=== PATIENT | female | born 1940 | race Caucasian/White ===

== ENCOUNTER 2024-06-23 10:02 | Outpatient (CLI) | payer MEDICARE, SELFPAY ==
[2024-06-23 10:37] LABS: Basophils Percent Auto 0.5 % (0.2-1.2); Eosinophils Absolute Auto 0.2 K/mm3 (0-0.3); Eosinophils Percent Auto 3.2 % (0-4.4); Hematocrit 38.8 % (37.0-47.0); Hemoglobin 12.2 g/dL (12.0-15.0); Immature Granulocyte Absolute 0.02 K/mm3 (0.00-0.031); Immature Granulocyte Percent A 0.4 % (0-0.5); Lymphocytes Absolute Auto 2.09 K/mm3 (0.9-3.2); Lymphocytes Percent Auto 36.9 % (18.3-44.2); Mean Corpuscular HGB Conc 31.4 g/dl (32-36); Mean Corpuscular Hemoglobin 30.3 pg (26-34); Mean Corpuscular Volume 96.3 fl (80-100); Mean Platelet Volume 9.5 fl (7.4-10.4); Monocytes Absolute Auto 0.6 K/mm3 (0.1-0.6); Monocytes Percent Auto 9.7 % (2.6-8.5); Neutrophils Absolute Auto 2.8 K/mm3 (1.3-6.7); Neutrophils Percent Auto 49.3 % (45.5-73.1); Platelet Count Result 243 k/mm3 (150-375); Red Blood Count 4.03 M/mm3 (4.2-5.4); Red Cell Distribution Width 12.9 % (11.5-14.5); White Blood Count 5.7 K/mm3 (4.5-10.0)
[2024-06-23 10:56] LABS: Glucose 94 mg/dL (65-110)
[2024-06-23 16:20] LABS: Hemoglobin A1C 5.9 % (<5.7)
== END 2024-06-23 10:03 | disposition home or self-care (01) ==
PROVIDERS: Visit Provider Optometrist
DX: H35.041 Retinal micro-aneurysms, unspecified, right eye (principal); Z98.42 Cataract extraction status, left eye; Z98.41 Cataract extraction status, right eye
CPT/HCPCS: 36415; 82947; 83036; 85025

== ENCOUNTER 2025-03-11 09:06 | Emergency (ER) | payer MEDICARE, SELFPAY ==
[2025-03-11 09:28] VITALS: BP 128/66; PULSE 64; RESP 16; TEMP 36.4; O2SAT 98
[2025-03-11 09:36] LABS: EDUAAPPEAR Cloudy; EDUABILI Negative (Negative); EDUABLOOD 3+ (Negative); EDUACOLOR1 Yellow; EDUAGLUCOSE Negative (Negative); EDUAKETONE Negative (Negative); EDUALEUKO 2+ (Negative); EDUANITRATE Negative (Negative); EDUAPH 5.5; EDUAPROTEIN 3+ (Negative); EDUASPGRAVITY 1.025; EDUAUROBILI 0.2
--- NOTE | 2025-03-11 09:38 | ED.FEMALEGU ---
HPI - Female Genitourinary General Chief complaint: Urogenital-Female Stated complaint: uti, burning Time Seen by Provider: 03/11/25 09:13 Source: patient Mode of arrival: ambulatory Limitations: no limitations History of Present Illness HPI Narrative: Patient is a 84-year-old female who presents with burning with urination since yesterday. Patient has also had frequency and urgency. Denies any low back pain, pelvic pain, fever, chills, nausea vomiting, diarrhea. MD elicited complaint: dysuria Related Data Home Medications ?Medication ?Instructions ?Recorded ?Confirmed ?Last Taken ?Type aliskiren 150 mg tablet mg 03/11/25 Unknown History amlodipine 5 mg tablet mg 03/11/25 Unknown History apixaban 5 mg tablet (Eliquis) mg 03/11/25 Unknown History famotidine 03/11/25 Unknown History metoprolol tartrate 25 mg tablet mg 03/11/25 Unknown History Allergies Allergy/AdvReac Type Severity Reaction Status Date / Time Penicillins Allergy Unknown Unknown Verified 03/11/25 09:29 Review of Systems Review of Systems: All systems reviewed & are unremarkable except as noted in HPI and below Constitutional: Constitutional: Denies chills, Denies fever(s), Denies headache(s), Denies malaise and Denies weakness Eyes: Eyes: Denies change in vision, Denies eye discharge and Denies irritation ENT: Denies otalgia, Denies headache(s), Denies nasal congestion, Denies nasal discharge, Denies sinus pain and Denies sore throat Cardiovascular: Cardiovascular: Denies chest pain, Denies edema, Denies palpitations and Denies dyspnea Respiratory: Respiratory: Denies cough and Denies dyspnea Gastrointestinal: Gastrointestinal: Denies abdominal pain, Denies diarrhea, Denies nausea and Denies vomiting Genitourinary: Genitourinary: Denies hematuria, Reports nocturia, Reports dysuria, Denies flank pain and Reports urinary urgency Musculoskeletal: Musculoskeletal: Denies back pain and Denies numbness Integumentary/Breasts: Skin/Breast: Denies pruritus and Denies rash Neurologic: Denies headache(s), Denies numbness and Denies weakness Psychiatric: Psychiatric: Reports no additional psychiatric complaints Endocrine: Endocrine: Denies palpitations PMFSH Comments At time of signature, agree with nursing past medical, surgical, social and family history. There is no relevant family history pertinent to the presenting complaint. Exam Const: General: cooperative, healthy appearing, comfortable, no acute distress and well nourished Nutritional Appearance: well nourished Orientation/consciousness: patient oriented x3 HENMT: Head: normocephalic and atraumatic Ears: external ears normal Face/Nose/Sinus: Normal external nose present, Normal nares present and normal facial exam Face and sinus: normal facial exam Eyes: General: appearance normal, both eyes and all related structures Pupils: Equal, round and reactive pupils present EOM: EOMs intact bilaterally Neck: Neck: normal visual inspection, full ROM and supple Chest: Chest palpation & inspection: normal inspection of the chest Resp: Effort & Inspection: normal respiratory effort and able to speak in complete sentences Cardio: Rate: regular rate Rhythm: regular rhythm GI: Inspection: normal to inspection GI Palp: No abdominal tenderness and Yes Soft to palpation : General: Yes no CVA tenderness Back/Spine/Pelvis: Back: no CVA tenderness Skin: General skin exam: normal color and no rashes or lesions noted Neuro: General: patient oriented x3 and moves all extremities Cranial nerves: Yes Equal, round and reactive pupils present Extrem: General: normal to inspection and full ROM Psych: Appearance: grossly normal and well kempt Course Course Emergency Course: Patient is aware of diagnosis, understands and agrees to treatment plan. Anticipatory guidance given. Patient agrees to follow-up as directed and is aware of reasons to seek care at the emergency department. Portions of this record may have been created with voice recognition software Level of Care: Express Care Visit Vital Signs Vital signs: Vital Signs Temperature 36.4 C L 03/11/25 09:28 Pulse Rate 64 03/11/25 09:28 Respiratory Rate 16 03/11/25 09:28 Blood Pressure 128/66 03/11/25 09:28 Pulse Oximetry 98 03/11/25 09:28 Temperature 36.4 C L 03/11/25 09:28 Pulse Rate 64 03/11/25 09:28 Respiratory Rate 16 03/11/25 09:28 Blood Pressure 128/66 03/11/25 09:28 Pulse Oximetry 98 03/11/25 09:28 Reviewed MDM - Female Genitourinary MDM Narrative Medical decision making narrative: Exam findings and UA show probable UTI; patient is non-toxic appearing and is in no distress. No CMT, adnexal tenderness, or evidence of pelvic etiology. Patient is appropriate for outpatient treatment and follow-up. Differential Diagnosis Differential diagnosis: Likely urinary tract infection, bacterial vaginosis, trichomoniasis, cervicitis, vaginitis and cystitis Lab Data Attestation: I reviewed the patient's lab results. Labs: Lab Results 03/11/25 Range/Units 09:35 POC Urine Color Yellow POC Urine Clarity Cloudy POC Urine pH 5.5 POC Ur Specif [place] 1.025 POC Urine Protein 3+ (Negative) POC Ur Glucose (UA) Negative (Negative) POC Urine Ketones Negative (Negative) POC Urine Blood 3+ (Negative) POC Urine Nitrite Negative (Negative) POC Urine Bilirubin Negative (Negative) POC Urine Urobilinogen 0.2 POC U Leukocyte Esteras 2+ (Negative) Discharge Plan Discharge Clinical Impression: Urinary tract infection Qualifiers: Urinary tract infection type: acute cystitis Hematuria presence: with hematuria Qualified Code(s): N30.01 - Acute cystitis with hematuria Patient Disposition: Home Condition: Stable Instructions: Urinary Tract Infection in Older Adults (ED) Additional Instructions: We will send a urine culture to the lab, based on your symptoms and urine dip we will start treatment today. If culture comes back and bacteria is not susceptible to antibiotic, your prescription may change. Your symptoms should improve within a day of starting antibiotics, but you should finish all the antibiotic pills you get. Otherwise your infection might come back Continue with increased water intake. Take Tylenol or ibuprofen as needed for pain or fever. Follow-up with primary care provider for urine recheck or see ER visit if condition worsens with high fever, nausea, vomiting, severe back pain Patient Language: [place] Prescriptions: New nitrofurantoin monohyd/m-cryst 100 mg capsule 100 mg PO Q12H 5 Days Qty: 10 0RF Rx Instructions: must administer with a meal/food No Action amlodipine 5 mg tablet metoprolol tartrate 25 mg tablet aliskiren 150 mg tablet Eliquis 5 mg tablet famotidine Follow-up/Referrals: UNKNOWN,DOCTOR [Primary Care Provider] - Time of Disposition: 09:39
== END 2025-03-11 09:45 | disposition home or self-care (01) ==
PROVIDERS: Emergency Provider Nurse Practitioner Family
DX: N30.01 Acute cystitis with hematuria (principal); Z79.01 Long term (current) use of anticoagulants
CPT/HCPCS: 81003; 87086; 99203; G0463

== ENCOUNTER 2025-03-20 08:15 | Outpatient (CLI) | payer MEDICARE, SELFPAY ==
--- OUTSIDE RECORDS SUMMARY | 2025-03-20 08:32 | XMS_ITS ---
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 unit/0.1 mL intradermal injection solution 1 Application VIAL (ML) Other 1 Time Daily for 1 Day Indication: rule out tb Read results between 48-72 hours after 1st and 2nd (1 week apart). Any reading of 10mm or greater results in a positive test, an x-ray will need to be ordered as a follow up. WedJan 09 15:00:00 EDT 2024Jan 09 15:50:00 EDT 2024 docusate sodium 100 mg capsule 100 mg CAPSULE Oral PRN 2 Times Daily Indication: constipation WedJan 12 16:38:00 EDT 2024Jan 29 01:00:00 EDT 2024 amLODIPine 2.5 mg tablet 3 tabs TABLET O ral 1 Time Daily Indication: HTN WedJan 09 15:00:00 EDT 2024Jan 09 17:33:00 EDT 2024 Eliquis 5 mg tablet 5 mg TABLET Oral 2 T imes Daily Indication: blood thinner WedJan 09 15:00:00 EDT 2024Jan 29 01:00:00 EDT 2024 docusate sodium 100 mg capsule 100 mg CAPSULE Oral 2 Times Daily Indication: constipation WedJan 09 15:00:00 EDT 2024Jan 12 16:39:00 EDT 2024 acetaminophen 500 mg tablet 500 mg TABLE T Oral PRN Every 4 Hours Indication: pain WedJan 09 15:00:00 EDT 2024Jan 29 01:00:00 EDT 2024 aliskiren 150 mg tablet 150 mg TABLET Or al 1 Time Daily Indication: HTN WedJan 09 15:00:00 EDT 2024Jan 09 17:25:00 EDT 2024 ALPRAZolam 0.5 mg tablet 0.5 mg TABLET O ral PRN 1 Time Daily Indication: anxiety WedJan 09 15:00:00 EDT 2024Jan 09 17:29:00 EDT 2024 cholecalciferol (vitamin D3) 50 mcg (2,000 unit) tablet 2,000 units TABLET Oral 1 Time Daily Indication: supplement WedJan 09 15:00:00 EDT 2024Jan 29 01:00:00 EDT 2024 famotidine 20 mg tablet 20 mg TABLET Ora l PRN 1 Time Daily Indication: acid reflux WedJan 09 15:00:00 EDT 2024Jan 29 01:00:00 EDT 2024 metoprolol tartrate 50 mg tablet 50 mg TABLET Oral 2 Times Daily Indication: HTN WedJan 09 15:00:00 EDT 2024Jan 29 01:00:00 EDT 2024 sertraline 25 mg tablet 25 mg TABLET Ora l 1 Time Daily Indication: depression WedJan 09 15:00:00 EDT 2024Jan 29 01:00:00 EDT 2024 TubersoL 5 tub. unit/0.1 mL intradermal injection solution 0.1 Milliliter VIAL (ML) Intradermal 1 Time Daily for 1 Day Indication: rule out tb 1 Step PPD- Read between 48 and 72 hours WedJan 10 07:00:00 EDT 2024Jan 11 06:59:00 EDT 2024 TubersoL 5 tub. unit/0.1 mL intradermal injection solution 1 Application VIAL (ML) Other 1 Time Daily for 1 Day Indication: rule out tb Read results between 48-72 hours after 1st and 2nd (1 week apart). Any reading of 10mm or greater results in a positive test, an x-ray will need to be ordered as a follow up. WedJan 12 07:00:00 EDT 2024 14 06:59:00 EDT 2024 aliskiren 150 mg tablet 75mg TABLET Oral 1 Time Daily Indication: HTN WedJan 09 17:24:00 EDT 2024Jan 29 01:00:00 EDT 2024 ALPRAZolam 0.5 mg tablet 0.5 mg TABLET O ral PRN 1 Time Daily Indication: anxiety WedJan 09 17:28:00 EDT 2024Jan 09 17:29:00 EDT 2024 ALPRAZolam 0.25 mg tablet 1/2 tablet TAB LET Oral PRN 1 Time Daily Indication: Anxiety WedJan 09 17:00:00 EDT 2024Jan 15 17:59:00 EDT 2024 amLODIPine 2.5 mg tablet 3 tablets TABLE T Oral 1 Time Daily Indication: HTN WedJan 09 17:32:00 EDT 2024Jan 29 01:00:00 EDT 2024 Problems Active Concerns * Acute embolism and thrombosis of left peroneal vein* Code: * Start Date: WedJan 09 00:00:00 EDT 2024 * End Date: * Text: * Multiple subsegmental thrombotic 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 * Code: * Start Date: WedJan 09 00:00:00 EDT 2024 * End Date: * Text: * Presence of other vascular implants and grafts* Code: * Start Date: WedJan 09 00:00:00 EDT 2024 * End Date: * Text: * Anxiety disorder, unspecified* Code: * Start Date: WedJan 09 00:00:00 EDT 2024 * End Date: WedJan 12 00:00:00 EDT 2024 * Text: * Depression, unspecified* Code: * Start Date: WedJan 09 00:00:00 EDT 2024 * End Date: WedJan 11 00:00:00 EDT 2024 * Text: * Essential (primary) hypertension* Code: * Start Date: WedJan 09 00:00:00 EDT 2024 * End Date: * Text: * Encounter for surgical aftercare following surgery on the circulatory system* Code: * Start Date: WedJan 09 00:00:00 EDT 2024 * End Date: * Text: * Gastro-esophageal reflux disease without esophagitis* Code: * Start Date: WedJan 09 00:00:00 EDT 2024 * End Date: * Text: * Malignant neoplasm of transverse colon* Code: * Start Date: WedJan 09 00:00:00 EDT 2024 * End Date: * Text: * Iron deficiency anemia, unspecified* Code: * Start Date: WedJan 09 00:00:00 EDT 2024 * End Date: * Text: * Gastrointestinal hemorrhage, unspecified* Code: * Start Date: WedJan 09 00:00:00 EDT 2024 * End Date: * Text: * Other disturbances of skin sensation* Code: * Start Date: WedJan 09 00:00:00 EDT 2024 * End Date: * Text: * Acute posthemorrhagic anemia* Code: * Start Date: WedJan 09 00:00:00 EDT 2024 * End Date: * Text: * Other specified postprocedural states* Code: * Start Date: WedJan 09 00:00:00 EDT 2024 * End Date: * Text: * Constipation, unspecified* Code: * Start Date: WedJan 09 00:00:00 EDT 2024 * End Date: * Text: * custodial (current) use of anticoagulants* Code: * Start Date: WedJan 09 00:00:00 EDT 2024 * End Date: * Text: * Major depressive disorder, recurrent, unspecified* Code: * Start Date: WedJan 09 00:00:00 EDT 2024 * End Date: * Text: * Generalized anxiety disorder* Code: * Start Date: WedJan 09 00:00:00 EDT 2024 * End Date: * Text: * Vitamin D deficiency, unspecified* Code: * Start Date: WedJan 09 00:00:00 EDT 2024 * End Date: * Text: * Weakness* Code: * Start Date: WedJan 31 00:00:00 EDT 2024 * End Date: * Text: * [id number] Susan receives a therapeutic diet. (12)* Code: * Start Date: WedJan 17 00:00:00 EDT 2024 * End Date: * Text: [id number] Susan receives a therapeutic diet. (12) * ANDREASVickieSocial Ed Davis's wishes will be followed (Advanced Directive/Code Status).* Code: * Start Date: WedJan 17::00 EDT 2024 * End Date: * Text: ANDREASVickieSocial Ed Davis's wishes will be followed (Advanced Directive/Code Status). * ANDREASVickieSocial ServicesChristiano Davis will be involved in goal development to the best of his or her ability.* Code: * Start Date: WedJan 17 00:00:00 EDT 2024 * End Date: * Text: ANDREAS_Social ServicesChristiano Davis will be involved in goal development to the best of his or her ability. * ANDREASVickieSocial Ed Davis has family/friends who are supportive.* Code: * Start Date: WedJan 17:00:00 EDT 2024 * End Date: * Text: ANDREASVickieSocial Ed Davis has family/friends who are supportive. * JONATHONSocial Ed Davis's mobility level is different than prior level due to current medical condition.* Code: * Start Date: WedJan 17 00:00:00 EDT 2024 * End Date: * Text: LSS_Social Services- Susan's mobility level is different than prior level due to current medical condition. * LSS_Social Services- Susan will be involved in discharge planning.* Code: * Start Date: WedJan 17 00:00:00 EDT 2024 * End Date: * Text: LSS_Social Services- Susan will be involved in discharge planning. * B0200.2 Hearing: Susan is able to hear with Moderate Difficulty (4)* Code: * Start Date: WedJan 22:00:00 EDT 2024 * End Date: * Text: B0200.2 Hearing: Susan is able to hear with Moderate Difficulty (4) * B1000.1 Vision: Susan ability to see in adequate light is Impaired (3)* Code: * Start Date: WedJan 22:00:00 EDT 2024 * End Date: * Text: B1000.1 Vision: Susan ability to see in adequate light is Impaired (3) * LSS_Psychotropic Drug Use - Use of psychotropic drug use places Susan at risk for drug-related sideeffects.* Code: * Start Date: WedJan 22:00:00 EDT 2024 * End Date: * Text: LSS_Psychotropic Drug Use - Use of psychotropic drug use places Susan at risk for drug-related side effects. * LSS_Falls - Susan is at risk for falls/injury as evidenced by: history of falls, cognitive status/behavior, vision status, continence, mobility, balance.* Code: * Start Date: WedJan 22 00:00:00 EDT 2024 * End Date: * Text: LSS_Falls - Susan is at risk for falls/injury as evidenced by: history of falls, cognitive status/behavior, vision status, continence, mobility, balance. * LSS_Pain - Susan is experiencing pain or is at high risk for pain.* Code: * Start Date: WedJan 22::00 EDT 2024 * End Date: * Text: LSS_Pain - Susan is experiencing pain or is at high risk for pain. * LSS_Skin Integrity - (Potential Alteration of)- Susan is at risk for developing impaired skin integrity.* Code: * Start Date: WedJan 22:00:00 EDT 2024 * End Date: * Text: LSS_Skin Integrity - (Potential Alteration of)- Susan is at risk for developing impaired skinintegrity. * LSS_ADLs - Susan has ADL selfcare deficit related to decreased mobility and muscle weakness* Code: * Start Date: WedJan 22 00:00:00 EDT 2024 * End Date: * Text: LSS_ADLs - Susan has ADL selfcare deficit related to decreased mobility and muscle weakness * LSS_Urinary Incontinence1 - Susan is occasionally incontinent.* Code: * Start Date: WedJan 22 00:00:00 EDT 2024 * End Date: * Text: LSS_Urinary Incontinence1 - Susan is occasionally incontinent. * [id number] Suasn is taking antidepressant drug(s)* Code: * Start Date: WedJan 22 00:00:00 EDT 2024 * End Date: * Text: [id number] Susan is taking antidepressant drug(s) Vital Signs Vital Sign Measurement Date Body weight 125.90 [lb_av] WedJan 29 09:40 :00 EDT 2024 Systolic Blood Pressure 128.00 mm[Hg] WedJan 29:31:26 EDT 2024 Diastolic Blood Pressure 72.00 mm[Hg] WedJan 29:31:26 EDT 2024 Pulse Oximetry 94.00 % WedJan 29:31 :26 EDT 2024 Heart Rate 86.00 /min WedJan 29:31 :26 EDT 2024 Body temperature 98.10 [degF] WedJan 29 09:3 1:26 EDT 2024 Respiratory rate 18.00 /min WedJan 29 09:3 1:26 EDT 2024 Systolic Blood Pressure 128.00 mm[Hg] WedJan 29 09:10:45 EDT 2024 Diastolic Blood Pressure 72.00 mm[Hg] WedJan 29 09:10:45 EDT 2024 Systolic Blood Pressure 128.00 mm[Hg] WedJan 29:10:45 EDT 2024 Diastolic Blood Pressure 72.00 mm[Hg] WedJan 29 09:10:45 EDT 2024 Heart Rate 86.00 /min WedJan 29 09:10 :45 EDT 2024 Systolic Blood Pressure 127.00 mm[Hg] [place] Jan 28 20:17:03 EDT 2024 Diastolic Blood Pressure 73.00 mm[Hg] [place] Jan 28 20:17:03 EDT 5 Systolic Blood Pressure 127.00 mm[Hg] Sun [place] 29 20:17:03 EDT 5 Diastolic Blood Pressure 73.00 mm[Hg] Sun [place] 29 20:17:03 EDT 5 Systolic Blood Pressure 127.00 mm[Hg] Sun [place] 29 20:17:03 EDT 2024 Diastolic Blood Pressure 73.00 mm[Hg] Sun [place] 29 20:17:03 EDT 2024 Pulse Oximetry 97.00 % Sun Jose 29 20:17 :03 EDT 2024 Heart Rate 97.00 /min Sun Jan 28 20:17 :03 EDT 2024 Heart Rate 97.00 /min Sun Jose 29 20:17 :03 EDT 2024 Body temperature 97.80 [degF] Sun Jan 28 20:1 7:03 EDT 2024 Respiratory rate 18.00 /min Sun Jan 28 20:1 7:03 EDT 2024 Systolic Blood Pressure 168.00 mm[Hg] Sun Jan 28 09:06:49 EDT 2024 Diastolic Blood Pressure 71.00 mm[Hg] Sun Jan 28 09:06:49 EDT 2024 Systolic Blood Pressure 168.00 mm[Hg] Sun Jan 28 09:06:49 EDT 2024 Diastolic Blood Pressure 71.00 mm[Hg] Sun Jan 28 09:06:49 EDT 2024 Heart Rate 70.00 /min Sun Jan 28 09:06 :49 EDT 2024 Systolic Blood Pressure 168.00 mm[Hg] Sun Jan 28 09:03:37 EDT 2024 Diastolic Blood Pressure 71.00 mm[Hg] [place] 09:03:37 EDT 2024 Pulse Oximetry 96.00 % Sun Jan 28 09:03 :37 EDT 2024 Body weight 125.00 [lb_av] Sun Jan 28 09:03 :37 EDT 2024 Heart Rate 70.00 /min Sun Jose 09:03 :37 EDT 2024 Body temperature 98.20 [degF] Sun Jose 09:0 3:37 EDT 2024 Respiratory rate 18.00 /min Sun Jose 29 09:0 3:37 EDT 2024 Systolic Blood Pressure 137.00 mm[Hg] Sat Jose 28 20:33:21 EDT 2024 Diastolic Blood Pressure 84.00 mm[Hg] Sat Jose 28 20:33:21 EDT 2024 Systolic Blood Pressure 137.00 mm[Hg] Sat Jose 28 20:33:21 EDT 2024 Diastolic Blood Pressure 84.00 mm[Hg] Sat Jose 28 20:33:21 EDT 2024 Systolic Blood Pressure 137.00 mm[Hg] Sat Jose 28 20:33:21 EDT 2024 Diastolic Blood Pressure 84.00 mm[Hg] Sat Jose 28 20:33:21 EDT 2024 Pulse Oximetry 97.00 % Sat Jose 28 20:33 :21 EDT 2024 Heart Rate 90.00 /min Sat Jose 28 20:33 :21 EDT 2024 Heart Rate 90.00 /min Sat Jose 28 20:33 :21 EDT 2024 Body temperature 98.20 [degF] [facility] Jose 28 20:3 3:21 EDT 2024 Respiratory rate 20.00 /min [facility] Jose 28 20:3 3:21 EDT 2024 Body weight 124.80 [lb_av] [facility] Jose 28 09:24 :39 EDT 2024 Systolic Blood Pressure 134.00 mm[Hg] [facility] Jose 28 09:24:22 EDT 2024 Diastolic Blood Pressure 71.00 mm[Hg] [facility] Jose 28 09:24:22 EDT 2024 Systolic Blood Pressure 134.00 mm[Hg] [facility] Jose 28 09:24:22 EDT 2024 Diastolic Blood Pressure 71.00 mm[Hg] [facility] Jose 28 09:24:22 EDT 2024 Systolic Blood Pressure 134.00 mm[Hg] Sat Jose 28 09:24:22 EDT 2024 Diastolic Blood Pressure 71.00 mm[Hg] [facility] Jose 28 09:24:22 EDT 2024 Pulse Oximetry 99.00 % [facility] Jose 28 09:24 :22 EDT 2024 Heart Rate 74.00 /min Sat Jose 28 09:24 :22 EDT 5 Heart Rate 74.00 /min Sat Jose 28 09:24 :22 EDT 2024 Body temperature 98.00 [degF] Sat Jose 28 09:2 4:22 EDT 2024 Respiratory rate 18.00 /min Sat Jose 28 09:2 4:22 EDT 2024 Systolic Blood Pressure 145.00 mm[Hg] WedJan 26 20:15:05 EDT 2024 Diastolic Blood Pressure 67.00 mm[Hg] WedJan 26 20:15:05 EDT 2024 Systolic Blood Pressure 145.00 mm[Hg] WedJan 26 20:15:05 EDT 2024 Diastolic Blood Pressure 67.00 mm[Hg] WedJan 26 20:15:05 EDT 2024 Systolic Blood Pressure 145.00 mm[Hg] WedJan 26 20:15:05 EDT 2024 Diastolic Blood Pressure 67.00 mm[Hg] WedJan 26 20:15:05 EDT 2024 Pulse Oximetry 97.00 % WedJan 26 20:15 :05 EDT 2024 Heart Rate 76.00 /min WedJan 26 20:15 :05 EDT 2024 Heart Rate 76.00 /min WedJan 26 20:15 :05 EDT 2024 Body temperature 98.20 [degF] WedJan 26 20:1 5:05 EDT 2024 Respiratory rate 18.00 /min WedJan 26 20:1 5:05 EDT 2024 Body weight 126.20 [lb_av] WedJan 26 14:09 :20 EDT 2024 Systolic Blood Pressure 131.00 mm[Hg] WedJan 26 09:33:43 EDT 2024 Diastolic Blood Pressure 76.00 mm[Hg] WedJan 26 09:33:43 EDT 2024 Systolic Blood Pressure 131.00 mm[Hg] WedJan 26 09:33:43 EDT 2024 Diastolic Blood Pressure 76.00 mm[Hg] WedJan 26 09:33:43 EDT 2024 Heart Rate 78.00 /min WedJan 26 09:33 :43 EDT 2024 Systolic Blood Pressure 131.00 mm[Hg] WedJan 26 08:54:48 EDT 2024 Diastolic Blood Pressure 76.00 mm[Hg] WedJan 26 08:54:48 EDT 2024 Pulse Oximetry 95.00 % WedJan 26 08:54 :48 EDT 2024 Heart Rate 78.00 /min WedJan 26 08:54 :48 EDT 2024 Body temperature 98.30 [degF] WedJan 26 08:5 4:48 EDT 2024 Respiratory rate 16.00 /min WedJan 26 08:5 4:48 EDT 2024 Systolic Blood Pressure 122.00 mm[Hg] WedJan 25 22:52:50 EDT 2024 Diastolic Blood Pressure 66.00 mm[Hg] WedJan 25 22:52:50 EDT 2024 Systolic Blood Pressure 122.00 mm[Hg] WedJan 25 22:52:50 EDT 2024 Diastolic Blood Pressure 66.00 mm[Hg] WedJan 25 22:52:50 EDT 2024 Systolic Blood Pressure 122.00 mm[Hg] WedJan 25 22:52:50 EDT 2024 Diastolic Blood Pressure 66.00 mm[Hg] [place] Jan 25 22:52:50 EDT 2024 Pulse Oximetry 95.00 % WedJan 25 22:52 :50 EDT 2024 Heart Rate 88.00 /min WedJan 25 22:52 :50 EDT 2024 Heart Rate 88.00 /min [place] Jan 25 22:52 :50 EDT 2024 Body temperature 97.90 [degF] [place] Jan 25 22:5 2:50 EDT 2024 Respiratory rate 20.00 /min [place] Jan 25 22:5 2:50 EDT 2024 Body weight 125.00 [lb_av] [place] Jan 25 09:20 :08 EDT 2024 Systolic Blood Pressure 129.00 mm[Hg] [place] Jan 25 09:00:29 EDT 2024 Diastolic Blood Pressure 72.00 mm[Hg] [place] Jan 25 09:00:29 EDT 2024 Systolic Blood Pressure 129.00 mm[Hg] [place] Jan 25 08:45:25 EDT 2024 Diastolic Blood Pressure 72.00 mm[Hg] [place] Jan 25 08:45:25 EDT 2024 Heart Rate 87.00 /min [place] Jan 25 08:45 :25 EDT 2024 Systolic Blood Pressure 129.00 mm[Hg] [place] Jan 25 08:44:31 EDT 2024 Diastolic Blood Pressure 72.00 mm[Hg] [place] Jan 25 08:44:31 EDT 2024 Pulse Oximetry 96.00 % [place] Jan 25 08:44 :31 EDT 2024 Heart Rate 87.00 /min [place] Jan 25 08:44 :31 EDT 2024 Body temperature 98.20 [degF] [place] Jan 25 08:4 4:31 EDT 2024 Respiratory rate 18.00 /min [place] Jan 25 08:4 4:31 EDT 2024 Systolic Blood Pressure 134.00 mm[Hg] WedJan 24 20:14:32 EDT 2024 Diastolic Blood Pressure 60.00 mm[Hg] WedJan 24 20:14:32 EDT 2024 Systolic Blood Pressure 134.00 mm[Hg] WedJan 24 20:14:32 EDT 2024 Diastolic Blood Pressure 60.00 mm[Hg] WedJan 24 20:14:32 EDT 2024 Systolic Blood Pressure 134.00 mm[Hg] WedJan 24 20:14:32 EDT 2024 Diastolic Blood Pressure 60.00 mm[Hg] WedJan 24 20:14:32 EDT 2024 Pulse Oximetry 98.00 % WedJan 24 20:14 :32 EDT 2024 Heart Rate 84.00 /min WedJan 24 20:14 :32 EDT 2024 Heart Rate 84.00 /min WedJan 24 20:14 :32 EDT 2024 Body temperature 98.10 [degF] WedJan 24 20:1 4:32 EDT 2024 Respiratory rate 20.00 /min WedJan 24 20:1 4:32 EDT 2024 Body weight 126.80 [lb_av] WedJan 24 18:54 :10 EDT 2024 Body weight 126.80 [lb_av] WedJan 24 18:53 :43 EDT 2024 Systolic Blood Pressure 149.00 mm[Hg] WedJan 24 09:05:03 EDT 2024 Diastolic Blood Pressure 75.00 mm[Hg] WedJan 24 09:05:03 EDT 2024 Systolic Blood Pressure 149.00 mm[Hg] WedJan 24 08:54:20 EDT 2024 Diastolic Blood Pressure 75.00 mm[Hg] WedJan 24 08:54:20 EDT 2024 Heart Rate 74.00 /min WedJan 24 08:54 :20 EDT 2024 Systolic Blood Pressure 149.00 mm[Hg] WedJan 24 08:47:24 EDT 2024 Diastolic Blood Pressure 75.00 mm[Hg] WedJan 24 08:47:24 EDT 2024 Pulse Oximetry 95.00 % WedJan 24 08:47 :24 EDT 2024 Heart Rate 74.00 /min WedJan 24 08:47 :24 EDT 2024 Body temperature 98.20 [degF] WedJan 24 08:4 7:24 EDT 2024 Respiratory rate 18.00 /min WedJan 24 08:4 7:24 EDT 2024 Systolic Blood Pressure 126.00 mm[Hg] WedJan 23 20:09:45 EDT 2024 Diastolic Blood Pressure 59.00 mm[Hg] WedJan 23 20:09:45 EDT 2024 Systolic Blood Pressure 126.00 mm[Hg] WedJan 23 20:09:45 EDT 2024 Diastolic Blood Pressure 59.00 mm[Hg] WedJan 23 20:09:45 EDT 2024 Systolic Blood Pressure 126.00 mm[Hg] WedJan 23 20:09:45 EDT 2024 Diastolic Blood Pressure 59.00 mm[Hg] WedJan 23 20:09:45 EDT 2024 Pulse Oximetry 96.00 % WedJan 23 20:09 :45 EDT 2024 Heart Rate 78.00 /min WedJan 23 20:09 :45 EDT 2024 Heart Rate 78.00 /min WedJan 23 20:09 :45 EDT 2024 Body temperature 97.80 [degF] WedJan 23 20:0 9:45 EDT 2024 Respiratory rate 18.00 /min WedJan 23 20:0 9:45 EDT 2024 Systolic Blood Pressure 125.00 mm[Hg] WedJan 23 09:04:15 EDT 2024 Diastolic Blood Pressure 81.00 mm[Hg] WedJan 23 09:04:15 EDT 2024 Systolic Blood Pressure 125.00 mm[Hg] WedJan 23 08:45:22 EDT 2024 Diastolic Blood Pressure 81.00 mm[Hg] WedJan 23 08:45:22 EDT 2024 Heart Rate 73.00 /min WedJan 23 08:45 :22 EDT 2024 Systolic Blood Pressure 125.00 mm[Hg] WedJan 23 08:33:11 EDT 2024 Diastolic Blood Pressure 81.00 mm[Hg] WedJan 23 08:33:11 EDT 2024 Pulse Oximetry 96.00 % WedJan 23 08:33 :11 EDT 2024 Heart Rate 73.00 /min WedJan 23 08:33 :11 EDT 2024 Body temperature 98.30 [degF] WedJan 23 08:3 3:11 EDT 2024 Respiratory rate 18.00 /min WedJan 23 08:3 3:11 EDT 2024 Systolic Blood Pressure 129.00 mm[Hg] WedJan 23 01:13:03 EDT 2024 Diastolic Blood Pressure 65.00 mm[Hg] WedJan 23 01:13:03 EDT 2024 Pulse Oximetry 96.00 % WedJan 23 01:13 :03 EDT 2024 Heart Rate 89.00 /min WedJan 23 01:13 :03 EDT 2024 Body temperature 98.00 [degF] Jan 23 01:1 3:03 EDT 2024 Respiratory rate 18.00 /min Jan 23 01:1 3:03 EDT 2024 Systolic Blood Pressure 129.00 mm[Hg] [facility] Jan 22 20:57:00 EDT 2024 Diastolic Blood Pressure 65.00 mm[Hg] [facility] Jan 22 20:57:00 EDT 2024 Systolic Blood Pressure 129.00 mm[Hg] [facility] Jan 22 20:57:00 EDT 2024 Diastolic Blood Pressure 65.00 mm[Hg] [facility] Jan 22 20:57:00 EDT 2024 Heart Rate 84.00 /min [facility] Jan 22 20:57 :00 EDT 2024 Systolic Blood Pressure 132.00 mm[Hg] [facility] Jan 22 09:08:27 EDT 2024 Diastolic Blood Pressure 78.00 mm[Hg] [facility] Jan 22 09:08:27 EDT 2024 Systolic Blood Pressure 132.00 mm[Hg] [facility] Jan 22 08:37:23 EDT 2024 Diastolic Blood Pressure 78.00 mm[Hg] [facility] Jan 22 08:37:23 EDT 2024 Pulse Oximetry 95.00 % [facility] Jan 22 08:37 :23 EDT 2024 Heart Rate 82.00 /min [facility] Jan 22 08:37 :23 EDT 2024 Body temperature 97.70 [degF] [facility] Jan 22 08:3 7:23 EDT 2024 Respiratory rate 16.00 /min WedJan 22 08:3 7:23 EDT 2024 Systolic Blood Pressure 132.00 mm[Hg] [facility] Jan 22 08:36:16 EDT 2024 Diastolic Blood Pressure 78.00 mm[Hg] [facility] Jan 22 08:36:16 EDT 2024 Heart Rate 82.00 /min [facility] Jan 22 08:36 :16 EDT 2024 Systolic Blood Pressure 136.00 mm[Hg] [place] Jan 21 21:31:48 EDT 2024 Diastolic Blood Pressure 72.00 mm[Hg] [place] Jan 21 21:31:48 EDT 2024 Pulse Oximetry 98.00 % [place] Jan 21 21:31 :48 EDT 2024 Heart Rate 89.00 /min [place] Jan 21 21:31 :48 EDT 2024 Body temperature 97.60 [degF] [place] Jan 21 21:3 1:48 EDT 2024 Respiratory rate 18.00 /min [place] Jan 21 21:3 1:48 EDT 2024 Systolic Blood Pressure 136.00 mm[Hg] Sun Jose 22 20:59:56 EDT 2024 Diastolic Blood Pressure 72.00 mm[Hg] Sun [place] 22 20:59:56 EDT 2024 Systolic Blood Pressure 136.00 mm[Hg] [place] 22 20:59:56 EDT 2024 Diastolic Blood Pressure 72.00 mm[Hg] [place] 22 20:59:56 EDT 2024 Heart Rate 89.00 /min Sun Jose 22 20:59 :56 EDT 2024 Systolic Blood Pressure 130.00 mm[Hg] Sun [place] 22 09:01:43 EDT 2024 Diastolic Blood Pressure 83.00 mm[Hg] [place] 22 09:01:43 EDT 2024 Systolic Blood Pressure 130.00 mm[Hg] [place] 22 08:43:49 EDT 2024 Diastolic Blood Pressure 83.00 mm[Hg] [place] 22 08:43:49 EDT 2024 Pulse Oximetry 97.00 % [place] 22 08:43 :49 EDT 2024 Heart Rate 80.00 /min Sun [place] 22 08:43 :49 EDT 2024 Body temperature 97.90 [degF] [place] 22 08:4 3:49 EDT 2024 Respiratory rate 20.00 /min Sun Jose 22 08:4 3:49 EDT 2024 Systolic Blood Pressure 130.00 mm[Hg] [place] 22 08:43:04 EDT 2024 Diastolic Blood Pressure 83.00 mm[Hg] [place] 22 08:43:04 EDT 2024 Heart Rate 80.00 /min Sun [place] 22 08:43 :04 EDT 2024 Systolic Blood Pressure 157.00 mm[Hg] [place] 22 00:01:10 EDT 2024 Diastolic Blood Pressure 97.00 mm[Hg] [place] 22 00:01:10 EDT 2024 Pulse Oximetry 97.00 % [place] 22 00:01 :10 EDT 2024 Heart Rate 97.00 /min Sun [place] 22 00:01 :10 EDT 2024 Body temperature 98.00 [degF] [place] 22 00:0 1:10 EDT 2024 Respiratory rate 20.00 /min Sun [place] 22 00:0 1:10 EDT 2024 Systolic Blood Pressure 157.00 mm[Hg] Sat Jose 21 21:04:53 EDT 2024 Diastolic Blood Pressure 97.00 mm[Hg] Sat Jose 21 21:04:53 EDT 5 Systolic Blood Pressure 157.00 mm[Hg] Sat Jose 21 21:04:53 EDT 5 Diastolic Blood Pressure 97.00 mm[Hg] Sat Jose 21 21:04:53 EDT 2024 Heart Rate 97.00 /min [facility] Jose 21 21:04 :53 EDT 2024 Body weight 125.80 [lb_av] [facility] Jose 21 13:39 :15 EDT 2024 Systolic Blood Pressure 146.00 mm[Hg] [facility] Jose 21 09:06:51 EDT 2024 Diastolic Blood Pressure 72.00 mm[Hg] [facility] Jose 21 09:06:51 EDT 5 Systolic Blood Pressure 146.00 mm[Hg] [facility] Jose 21 08:46:26 EDT 2024 Diastolic Blood Pressure 72.00 mm[Hg] [facility] Jose 21 08:46:26 EDT 2024 Pulse Oximetry 95.00 % [facility] Jose 21 08:46 :26 EDT 2024 Heart Rate 69.00 /min [facility] Jose 21 08:46 :26 EDT 2024 Body temperature 98.00 [degF] [facility] Jose 21 08:4 6:26 EDT 5 Respiratory rate 18.00 /min [facility] 21 08:4 6:26 EDT 2024 Systolic Blood Pressure 146.00 mm[Hg] [facility] Jose 21 08:45:58 EDT 2024 Diastolic Blood Pressure 72.00 mm[Hg] [facility] Jose 21 08:45:58 EDT 2024 Heart Rate 69.00 /min [facility] Jose 21 08:45 :58 EDT 2024 Systolic Blood Pressure 146.00 mm[Hg] Wed 20 21:07:55 EDT 2024 Diastolic Blood Pressure 73.00 mm[Hg] Wed 20 21:07:55 EDT 5 Systolic Blood Pressure 146.00 mm[Hg] Wed 20 21:07:55 EDT 5 Diastolic Blood Pressure 73.00 mm[Hg] Wed 20 21:07:55 EDT 2024 Systolic Blood Pressure 146.00 mm[Hg] Wed 20 21:07:55 EDT 2024 Diastolic Blood Pressure 73.00 mm[Hg] Wed 20 21:07:55 EDT 2024 Pulse Oximetry 96.00 % Wed 20 21:07 :55 EDT 2024 Heart Rate 90.00 /min Wed 20 21:07 :55 EDT 2024 Heart Rate 90.00 /min Wed 20 21:07 :55 EDT 2024 Body temperature 98.30 [degF] WedJan 19 21:0 7:55 EDT 2024 Respiratory rate 16.00 /min WedJan 19 21:0 7:55 EDT 2024 Body weight 125.30 [lb_av] Wed 20 14:45 :32 EDT 2024 Systolic Blood Pressure 129.00 mm[Hg] Wed 20 09:27:49 EDT 2024 Diastolic Blood Pressure 75.00 mm[Hg] WedJan 19 09:27:49 EDT 2024 Systolic Blood Pressure 129.00 mm[Hg] WedJan 19 09:27:49 EDT 2024 Diastolic Blood Pressure 75.00 mm[Hg] WedJan 19 09:27:49 EDT 2024 Heart Rate 79.00 /min WedJan 19 09:27 :49 EDT 2024 Systolic Blood Pressure 129.00 mm[Hg] WedJan 19 08:30:18 EDT 2024 Diastolic Blood Pressure 75.00 mm[Hg] WedJan 19 08:30:18 EDT 2024 Pulse Oximetry 97.00 % WedJan 19 08:30 :18 EDT 2024 Heart Rate 79.00 /min WedJan 19 08:30 :18 EDT 2024 Body temperature 98.20 [degF] WedJan 19 08:3 0:18 EDT 2024 Respiratory rate 20.00 /min WedJan 19 08:3 0:18 EDT 2024 Systolic Blood Pressure 133.00 mm[Hg] Petra Jan 18 23:40:13 EDT 2024 Diastolic Blood Pressure 66.00 mm[Hg] Petra Jan 18 23:40:13 EDT 2024 Pulse Oximetry 97.00 % WedJan 18 23:40 :13 EDT 2024 Heart Rate 86.00 /min WedJan 18 23:40 :13 EDT 2024 Body temperature 98.20 [degF] Petra Jan 18 23:4 0:13 EDT 2024 Respiratory rate 20.00 /min WedJan 18 23:4 0:13 EDT 2024 Systolic Blood Pressure 133.00 mm[Hg] Petra Jan 18 21:01:36 EDT 2024 Diastolic Blood Pressure 66.00 mm[Hg] Petra Jan 18 21:01:36 EDT 2024 Systolic Blood Pressure 133.00 mm[Hg] [facility] Jose 19 21:01:36 EDT 2024 Diastolic Blood Pressure 66.00 mm[Hg] [facility] Jose 19 21:01:36 EDT 2024 Heart Rate 86.00 /min [facility] Jose 19 21:01 :36 EDT 2024 Body weight 125.40 [lb_av] [facility] 19 14:24 :39 EDT 2024 Systolic Blood Pressure 153.00 mm[Hg] [facility] Jose 19 09:19:14 EDT 2024 Diastolic Blood Pressure 75.00 mm[Hg] [facility] Jose 19 09:19:14 EDT 2024 Systolic Blood Pressure 153.00 mm[Hg] [facility] 19 09:19:14 EDT 2024 Diastolic Blood Pressure 75.00 mm[Hg] [facility] 19 09:19:14 EDT 2024 Systolic Blood Pressure 153.00 mm[Hg] [facility] Jose 19 09:19:14 EDT 2024 Diastolic Blood Pressure 75.00 mm[Hg] [facility] Jose 19 09:19:14 EDT 2024 Pulse Oximetry 95.00 % [facility] 19 09:19 :14 EDT 2024 Heart Rate 87.00 /min [facility] Jose 19 09:19 :14 EDT 2024 Heart Rate 87.00 /min [facility] [place] 19 09:19 :14 EDT 2024 Body temperature 98.30 [degF] [facility] 19 09:1 9:14 EDT 2024 Respiratory rate 20.00 /min [facility] Jose 19 09:1 9:14 EDT 2024 Systolic Blood Pressure 136.00 mm[Hg] Wed 18 20:37:59 EDT 2024 Diastolic Blood Pressure 68.00 mm[Hg] Wed 18 20:37:59 EDT 2024 Systolic Blood Pressure 136.00 mm[Hg] Wed 18 20:37:59 EDT 2024 Diastolic Blood Pressure 68.00 mm[Hg] Wed 18 20:37:59 EDT 2024 Systolic Blood Pressure 136.00 mm[Hg] Wed 18 20:37:59 EDT 2024 Diastolic Blood Pressure 68.00 mm[Hg] Wed 18 20:37:59 EDT 2024 Pulse Oximetry 97.00 % Wed 18 20:37 :59 EDT 2024 Heart Rate 86.00 /min Wed 18 20:37 :59 EDT 2024 Heart Rate 86.00 /min Wed 18 20:37 :59 EDT 2024 Body temperature 98.10 [degF] Wed 18 20:3 7:59 EDT 2024 Respiratory rate 18.00 /min Wed 18 20:3 7:59 EDT 2024 Body weight 125.00 [lb_av] Wed 18 15:34 :25 EDT 2024 Systolic Blood Pressure 151.00 mm[Hg] Wed 18 09:53:12 EDT 2024 Diastolic Blood Pressure 75.00 mm[Hg] Wed 18 09:53:12 EDT 2024 Systolic Blood Pressure 151.00 mm[Hg] WedJan 17 09:53:12 EDT 2024 Diastolic Blood Pressure 75.00 mm[Hg] WedJan 17 09:53:12 EDT 2024 Systolic Blood Pressure 151.00 mm[Hg] WedJan 17 09:53:12 EDT 2024 Diastolic Blood Pressure 75.00 mm[Hg] WedJan 17 09:53:12 EDT 2024 Pulse Oximetry 95.00 % WedJan 17 09:53 :12 EDT 2024 Heart Rate 75.00 /min WedJan 17 09:53 :12 EDT 2024 Heart Rate 75.00 /min WedJan 17 09:53 :12 EDT 2024 Body temperature 98.30 [degF] WedJan 17 09:5 3:12 EDT 2024 Respiratory rate 18.00 /min WedJan 17 09:5 3:12 EDT 2024 Systolic Blood Pressure 128.00 mm[Hg] WedJan 16 23:42:12 EDT 2024 Diastolic Blood Pressure 74.00 mm[Hg] WedJan 16 23:42:12 EDT 2024 Pulse Oximetry 97.00 % WedJan 16 23:42 :12 EDT 2024 Heart Rate 87.00 /min WedJan 16 23:42 :12 EDT 2024 Body temperature 97.60 [degF] WedJan 16 23:4 2:12 EDT 2024 Respiratory rate 20.00 /min WedJan 16 23:4 2:12 EDT 2024 Systolic Blood Pressure 128.00 mm[Hg] WedJan 16 21:12:57 EDT 2024 Diastolic Blood Pressure 74.00 mm[Hg] Wed 17 21:12:57 EDT 2024 Systolic Blood Pressure 128.00 mm[Hg] WedJan 16 21:12:57 EDT 2024 Diastolic Blood Pressure 74.00 mm[Hg] WedJan 16 21:12:57 EDT 2024 Heart Rate 87.00 /min WedJan 16 21:12 :57 EDT 2024 Body weight 123.80 [lb_av] WedJan 16 13:57 :11 EDT 2024 Systolic Blood Pressure 147.00 mm[Hg] WedJan 16 09:33:27 EDT 2024 Diastolic Blood Pressure 81.00 mm[Hg] WedJan 16 09:33:27 EDT 2024 Systolic Blood Pressure 147.00 mm[Hg] WedJan 16 08:36:09 EDT 2024 Diastolic Blood Pressure 81.00 mm[Hg] WedJan 16 08:36:09 EDT 2024 Systolic Blood Pressure 147.00 mm[Hg] WedJan 16 08:36:09 EDT 2024 Diastolic Blood Pressure 81.00 mm[Hg] WedJan 16 08:36:09 EDT 2024 Pulse Oximetry 96.00 % WedJan 16 08:36 :09 EDT 2024 Heart Rate 73.00 /min WedJan 16 08:36 :09 EDT 2024 Heart Rate 73.00 /min WedJan 16 08:36 :09 EDT 2024 Body temperature 98.00 [degF] WedJan 16 08:3 6:09 EDT 2024 Respiratory rate 18.00 /min WedJan 16 08:3 6:09 EDT 2024 Systolic Blood Pressure 104.00 mm[Hg] WedJan 15 23:32:54 EDT 2024 Diastolic Blood Pressure 57.00 mm[Hg] WedJan 15 23:32:54 EDT 2024 Pulse Oximetry 96.00 % WedJan 15 23:32 :54 EDT 2024 Heart Rate 80.00 /min WedJan 15 23:32 :54 EDT 2024 Body temperature 98.40 [degF] WedJan 15 23:3 2:54 EDT 2024 Respiratory rate 18.00 /min WedJan 15 23:3 2:54 EDT 2024 Systolic Blood Pressure 104.00 mm[Hg] WedJan 15 21:30:06 EDT 2024 Diastolic Blood Pressure 57.00 mm[Hg] WedJan 15 21:30:06 EDT 2024 Systolic Blood Pressure 104.00 mm[Hg] WedJan 15 21:30:06 EDT 2024 Diastolic Blood Pressure 57.00 mm[Hg] [facility] Jose 16 21:30:06 EDT 2024 Heart Rate 80.00 /min Wed 16 21:30 :06 EDT 2024 Body weight 123.80 [lb_av] [facility] Jose 16 09:19 :49 EDT 2024 Systolic Blood Pressure 154.00 mm[Hg] [facility] Jose 16 09:17:19 EDT 2024 Diastolic Blood Pressure 74.00 mm[Hg] [facility] Jose 16 09:17:19 EDT 2024 Pulse Oximetry 96.00 % [facility] Jose 16 09:17 :19 EDT 2024 Heart Rate 72.00 /min [facility] Jose 16 09:17 :19 EDT 2024 Body temperature 98.20 [degF] [facility] Jan 15 09:1 7:19 EDT 2024 Respiratory rate 20.00 /min [facility] Jan 15 09:1 7:19 EDT 2024 Systolic Blood Pressure 154.00 mm[Hg] [facility] Jose 16 09:16:20 EDT 2024 Diastolic Blood Pressure 74.00 mm[Hg] [facility] Jan 15 09:16:20 EDT 2024 Systolic Blood Pressure 154.00 mm[Hg] [facility] Jan 15 09:16:20 EDT 2024 Diastolic Blood Pressure 74.00 mm[Hg] [facility] Jose 16 09:16:20 EDT 2024 Heart Rate 72.00 /min [facility] Jan 15 09:16 :20 EDT 2024 Systolic Blood Pressure 136.00 mm[Hg] [facility] Jose 15 20:09:57 EDT 2024 Diastolic Blood Pressure 63.00 mm[Hg] [facility] 15 20:09:57 EDT 2024 Systolic Blood Pressure 136.00 mm[Hg] [facility] 15 20:09:57 EDT 2024 Diastolic Blood Pressure 63.00 mm[Hg] [facility] 15 20:09:57 EDT 2024 Systolic Blood Pressure 136.00 mm[Hg] [facility] 15 20:09:57 EDT 2024 Diastolic Blood Pressure 63.00 mm[Hg] Sun Jose 15 20:09:57 EDT 2024 Pulse Oximetry 97.00 % Sun Jose 15 20:09 :57 EDT 2024 Heart Rate 80.00 /min Sun Jose 15 20:09 :57 EDT 2024 Heart Rate 80.00 /min Sun Jose 15 20:09 :57 EDT 2024 Body temperature 97.90 [degF] [facility] 15 20:0 9:57 EDT 2024 Respiratory rate 18.00 /min Sun Jose 15 20:0 9:57 EDT 2024 Body weight 124.40 [lb_av] Sun Jose 15 17:46 :52 EDT 2024 Systolic Blood Pressure 149.00 mm[Hg] [facility] Jose 15 09:01:30 EDT 2024 Diastolic Blood Pressure 83.00 mm[Hg] Sun Jose 15 09:01:30 EDT 2024 Systolic Blood Pressure 149.00 mm[Hg] [facility] Jose 15 09:00:58 EDT 2024 Diastolic Blood Pressure 83.00 mm[Hg] Sun Jose 15 09:00:58 EDT 2024 Heart Rate 83.00 /min Sun Jose 15 09:00 :58 EDT 2024 Systolic Blood Pressure 149.00 mm[Hg] [facility] Jose 15 08:54:35 EDT 2024 Diastolic Blood Pressure 83.00 mm[Hg] Sun Jose 15 08:54:35 EDT 2024 Pulse Oximetry 95.00 % Sun Jose 15 08:54 :35 EDT 2024 Heart Rate 83.00 /min Sun Jose 15 08:54 :35 EDT 2024 Body temperature 97.80 [degF] [facility] Jose 15 08:5 4:35 EDT 2024 Respiratory rate 18.00 /min Sun Jose 15 08:5 4:35 EDT 2024 Systolic Blood Pressure 144.00 mm[Hg] Sat Jose 14 20:29:08 EDT 2024 Diastolic Blood Pressure 78.00 mm[Hg] Sat Jose 14 20:29:08 EDT 2024 Systolic Blood Pressure 144.00 mm[Hg] Sat Jose 14 20:29:08 EDT 2024 Diastolic Blood Pressure 78.00 mm[Hg] Sat Jose 14 20:29:08 EDT 2024 Systolic Blood Pressure 144.00 mm[Hg] Sat Jose 14 20:29:08 EDT 2024 Diastolic Blood Pressure 78.00 mm[Hg] Sat Jose 14 20:29:08 EDT 2024 Pulse Oximetry 95.00 % Sat Jose 14 20:29 :08 EDT 2024 Heart Rate 84.00 /min Sat Jose 14 20:29 :08 EDT 2024 Heart Rate 84.00 /min Sat Jose 14 20:29 :08 EDT 2024 Body temperature 98.00 [degF] Sat Jose 14 20:2 9:08 EDT 2024 Respiratory rate 18.00 /min Sat Jose 14 20:2 9:08 EDT 2024 Systolic Blood Pressure 144.00 mm[Hg] Sat Jose 14 20:24:21 EDT 2024 Diastolic Blood Pressure 78.00 mm[Hg] Sat Jose 14 20:24:21 EDT 2024 Pulse Oximetry 95.00 % Sat Jose 14 20:24 :21 EDT 2024 Heart Rate 84.00 /min Sat Jose 14 20:24 :21 EDT 2024 Body temperature 98.00 [degF] Sat Jose 14 20:2 4:21 EDT 2024 Respiratory rate 18.00 /min Sat Jose 14 20:2 4:21 EDT 2024 Systolic Blood Pressure 151.00 mm[Hg] Sat Jose 14 09:31:20 EDT 5 Diastolic Blood Pressure 77.00 mm[Hg] Sat Jose 14 09:31:20 EDT 2024 Systolic Blood Pressure 151.00 mm[Hg] Sat Jose 14 09:31:20 EDT 2024 Diastolic Blood Pressure 77.00 mm[Hg] Sat Jose 14 09:31:20 EDT 2024 Systolic Blood Pressure 151.00 mm[Hg] Sat Jose 14 09:31:20 EDT 2024 Diastolic Blood Pressure 77.00 mm[Hg] Sat Jose 14 09:31:20 EDT 2024 Pulse Oximetry 95.00 % Sat Jose 14 09:31 :20 EDT 2024 Body weight 125.20 [lb_av] Sat Jose 14 09:31 :20 EDT 5 Heart Rate 78.00 /min Sat Jose 14 09:31 :20 EDT 5 Heart Rate 78.00 /min Sat Jose 14 09:31 :20 EDT 2024 Body temperature 98.00 [degF] Sat Jose 14 09:3 1:20 EDT 2024 Respiratory rate 18.00 /min Sat Jose 14 09:3 1:20 EDT 2024 Systolic Blood Pressure 147.00 mm[Hg] Fri Jose 13 21:12:21 EDT 5 Diastolic Blood Pressure 71.00 mm[Hg] Fri Jose 13 21:12:21 EDT 2024 Systolic Blood Pressure 147.00 mm[Hg] Fri Jose 13 21:12:21 EDT 5 Diastolic Blood Pressure 71.00 mm[Hg] Fri Jose 13 21:12:21 EDT 2024 Systolic Blood Pressure 147.00 mm[Hg] Fri Jose 13 21:12:21 EDT 2024 Diastolic Blood Pressure 71.00 mm[Hg] WedJan 12 21:12:21 EDT 2024 Pulse Oximetry 95.00 % WedJan 12 21:12 :21 EDT 2024 Heart Rate 83.00 /min WedJan 12 21:12 :21 EDT 2024 Heart Rate 83.00 /min WedJan 12 21:12 :21 EDT 2024 Body temperature 98.30 [degF] WedJan 12 21:1 2:21 EDT 2024 Respiratory rate 18.00 /min WedJan 12 21:1 2:21 EDT 2024 Body weight 128.00 [lb_av] WedJan 12 09:57 :02 EDT 2024 Systolic Blood Pressure 153.00 mm[Hg] WedJan 12 09:32:26 EDT 2024 Diastolic Blood Pressure 80.00 mm[Hg] WedJan 12 09:32:26 EDT 2024 Systolic Blood Pressure 153.00 mm[Hg] WedJan 12 09:32:26 EDT 2024 Diastolic Blood Pressure 80.00 mm[Hg] WedJan 12 09:32:26 EDT 2024 Systolic Blood Pressure 153.00 mm[Hg] WedJan 12 09:32:26 EDT 2024 Diastolic Blood Pressure 80.00 mm[Hg] WedJan 12 09:32:26 EDT 2024 Pulse Oximetry 95.00 % WedJan 12 09:32 :26 EDT 2024 Heart Rate 88.00 /min WedJan 12 09:32 :26 EDT 2024 Heart Rate 88.00 /min WedJan 12 09:32 :26 EDT 2024 Body temperature 98.00 [degF] WedJan 12 09:3 2:26 EDT 2024 Respiratory rate 18.00 /min WedJan 12 09:3 2:26 EDT 2024 Systolic Blood Pressure 149.00 mm[Hg] WedJan 12 00:53:19 EDT 2024 Diastolic Blood Pressure 73.00 mm[Hg] WedJan 12 00:53:19 EDT 2024 Pulse Oximetry 96.00 % WedJan 12 00:53 :19 EDT 2024 Heart Rate 81.00 /min WedJan 12 00:53 :19 EDT 2024 Body temperature 97.80 [degF] WedJan 12 00:5 3:19 EDT 2024 Respiratory rate 18.00 /min WedJan 12 00:5 3:19 EDT 2024 Systolic Blood Pressure 149.00 mm[Hg] [facility] Jose 12 22:15:53 EDT 2024 Diastolic Blood Pressure 73.00 mm[Hg] Wed 12 22:15:53 EDT 2024 Systolic Blood Pressure 149.00 mm[Hg] Wed 12 22:15:53 EDT 2024 Diastolic Blood Pressure 73.00 mm[Hg] [facility] 12 22:15:53 EDT 2024 Heart Rate 81.00 /min WedJan 11 22:15 :53 EDT 2024 Body weight 130.00 [lb_av] Wed 12 18:30 :23 EDT 2024 Body Height 59.00 [in_i] WedJan 11 12:01 :19 EDT 2024 Body Height 59.00 [in_i] [facility] 12 10:46 :11 EDT 2024 Systolic Blood Pressure 153.00 mm[Hg] Wed 12 09:40:23 EDT 2024 Diastolic Blood Pressure 73.00 mm[Hg] [facility] 12 09:40:23 EDT 2024 Systolic Blood Pressure 153.00 mm[Hg] Wed 12 09:40:23 EDT 2024 Diastolic Blood Pressure 73.00 mm[Hg] [facility] 12 09:40:23 EDT 2024 Systolic Blood Pressure 153.00 mm[Hg] [facility] 12 09:40:23 EDT 2024 Diastolic Blood Pressure 73.00 mm[Hg] [facility] 12 09:40:23 EDT 2024 Pulse Oximetry 93.00 % Wed 12 09:40 :23 ED2024 Heart Rate 80.00 /min Wed 12 09:40 :23 EDT 2024 Heart Rate 80.00 /min [facility] 12 09:40 :23 EDT 2024 Body temperature 98.30 [degF] [facility] 12 09:4 0:23 EDT 2024 Respiratory rate 118.00 /min Wed 12 09:4 0:23 EDT 2024 Systolic Blood Pressure 162.00 mm[Hg] WedJan 10 20:23:45 EDT 2024 Diastolic Blood Pressure 74.00 mm[Hg] WedJan 10 20:23:45 EDT 2024 Pulse Oximetry 95.00 % WedJan 10 20:23 :45 EDT 2024 Heart Rate 85.00 /min WedJan 10 20:23 :45 EDT 2024 Body temperature 98.20 [degF] WedJan 10 20:2 3:45 EDT 2024 Respiratory rate 19.00 /min WedJan 10 20:2 3:45 EDT 2024 Systolic Blood Pressure 162.00 mm[Hg] WedJan 10 20:22:20 EDT 2024 Diastolic Blood Pressure 74.00 mm[Hg] WedJan 10 20:22:20 EDT 2024 Systolic Blood Pressure 162.00 mm[Hg] WedJan 10 20:22:20 EDT 2024 Diastolic Blood Pressure 74.00 mm[Hg] WedJan 10 20:22:20 EDT 2024 Heart Rate 85.00 /min WedJan 10 20:22 :20 EDT 2024 Body weight 129.20 [lb_av] WedJan 10 12:30 :04 EDT 2024 Systolic Blood Pressure 119.00 mm[Hg] WedJan 10 09:07:43 EDT 2024 Diastolic Blood Pressure 54.00 mm[Hg] WedJan 10 09:07:43 EDT 2024 Systolic Blood Pressure 119.00 mm[Hg] WedJan 10 08:48:22 EDT 2024 Diastolic Blood Pressure 54.00 mm[Hg] WedJan 10 08:48:22 EDT 2024 Heart Rate 73.00 /min WedJan 10 08:48 :22 EDT 2024 Systolic Blood Pressure 119.00 mm[Hg] WedJan 10 08:15:21 EDT 2024 Diastolic Blood Pressure 54.00 mm[Hg] WedJan 10 08:15:21 EDT 2024 Pulse Oximetry 92.00 % WedJan 10 08:15 :21 EDT 2024 Heart Rate 73.00 /min WedJan 10 08:15 :21 EDT 2024 Body temperature 98.20 [degF] WedJan 10 08:1 5:21 EDT 2024 Respiratory rate 16.00 /min WedJan 10 08:1 5:21 EDT 2024 Systolic Blood Pressure 119.00 mm[Hg] WedJan 10 08:00:10 EDT 2024 Diastolic Blood Pressure 54.00 mm[Hg] WedJan 10 08:00:10 EDT 2024 Pulse Oximetry 92.00 % WedJan 10 08:00 :10 EDT 2024 Heart Rate 73.00 /min WedJan 10 08:00 :10 EDT 2024 Body temperature 98.20 [degF] WedJan 10 08:0 0:10 EDT 2024 Respiratory rate 16.00 /min WedJan 10 08:0 0:10 EDT 2024 Systolic Blood Pressure 119.00 mm[Hg] WedJan 10 07:45:34 EDT 2024 Diastolic Blood Pressure 54.00 mm[Hg] WedJan 10 07:45:34 EDT 2024 Pulse Oximetry 92.00 % WedJan 10 07:45 :34 EDT 2024 Heart Rate 73.00 /min WedJan 10 07:45 :34 EDT 2024 Body temperature 98.20 [degF] WedJan 10 07:4 5:34 EDT 2024 Respiratory rate 16.00 /min WedJan 10 07:4 5:34 EDT 2024 Systolic Blood Pressure 130.00 mm[Hg] Wed 10 20:37:17 EDT 2024 Diastolic Blood Pressure 69.00 mm[Hg] Wed 10 20:37:17 EDT 2024 Systolic Blood Pressure 130.00 mm[Hg] Wed 10 20:37:17 EDT 2024 Diastolic Blood Pressure 69.00 mm[Hg] Wed 10 20:37:17 EDT 2024 Systolic Blood Pressure 130.00 mm[Hg] Wed 10 20:37:17 EDT 2024 Diastolic Blood Pressure 69.00 mm[Hg] Wed 10 20:37:17 EDT 2024 Pulse Oximetry 94.00 % Wed 10 20:37 :17 EDT 2024 Heart Rate 77.00 /min Wed 10 20:37 :17 ED2024 Heart Rate 77.00 /min Wed 10 20:37 :17 EDT 2024 Body temperature 98.20 [degF] Wed 10 20:3 7:17 EDT 2024 Respiratory rate 18.00 /min Wed 10 20:3 7:17 EDT 2024 Systolic Blood Pressure 130.00 mm[Hg] Wed 10 16:07:00 EDT 2024 Diastolic Blood Pressure 69.00 mm[Hg] Wed 10 16:07:00 EDT 2024 Pulse Oximetry 95.00 % Wed 10 16:07 :00 EDT 2024 Heart Rate 77.00 /min Wed 10 16:07 :00 EDT 2024 Body temperature 98.20 [degF] Wed 10 16:0 7:00 EDT 2024 Respiratory rate 18.00 /min WedJan 09 16:0 7:00 EDT 2024 Reason for Referral
--- OUTSIDE RECORDS SUMMARY | 2025-03-20 08:32 | XMS_ITS ---
Author Name Auto Generated, Auto Generated Organization [facility] Address [address] [place] [address] Phone [phone] Care Team Providers Care Finance Officer Name Role Phone Ramon Richardson Unavailable Corona Stout Unavailable [phone] Iman Das Unavailable [phone] Gloria Baumann Unavailable [phone] Functional Status No Results Mental Status No Results Allergies and Intolerances Name Onset Date Reaction Severity penicillin (Allergy) WedJan 09 15:00:00 EDT 5 Encounters Program Name Primary Diagnosis Admission Date/Time Dis charge Date/Time 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 (12)* Code: * Start Date: WedJan 17 00:00:00 EDT 2024 * End Date: * Text: [id number] Susan receives a therapeutic diet. (12) * [...] with Moderate Difficulty (4) * B1000.1 Vision: Susna ability to see in adequate light is [...] Incontinence1 - Susan is occasionally incontinent. * [id number] Susan is taking antidepressant drug(s)* Code: * Start Date: WedJan 22 00:00:00 EDT 2024 * End Date: * Text: [id number] Susan is taking antidepressant drug(s) Vital Signs [...] EDT 2024 Systolic Blood Pressure 127.00 mm[Hg] [place] Jan 28 20:17:03 EDT 2024 Diastolic Blood Pressure 73.00 mm[Hg] [place] Jan 28 20:17:03 EDT 5 Systolic Blood [...] :21 EDT 2024 Body temperature 98.20 [degF] [facility] [place] 28 20:3 3:21 EDT 2024 Respiratory rate 20.00 /min [facility] [place] 28 20:3 3:21 EDT 2024 Body weight 124.80 [lb_av] [facility] [place] 28 09:24 :39 EDT 2024 Systolic Blood Pressure 134.00 mm[Hg] [facility] [place] 28 09:24:22 EDT 2024 Diastolic Blood Pressure 71.00 mm[Hg] [facility] [place] 28 09:24:22 EDT 2024 Systolic Blood Pressure 134.00 mm[Hg] [facility] [place] 28 09:24:22 EDT 2024 Diastolic Blood Pressure 71.00 mm[Hg] [facility] [place] 28 09:24:22 EDT 2024 Systolic Blood Pressure 134.00 mm[Hg] Sat [place] 28 09:24:22 EDT 2024 Diastolic Blood Pressure 71.00 mm[Hg] [facility] [place] 28 09:24:22 EDT 2024 Pulse Oximetry 99.00 % [facility] [place] 28 09:24 :22 EDT 2024 Heart [...] EDT 2024 Systolic Blood Pressure 129.00 mm[Hg] [facility] Jan 22 20:57:00 EDT 2024 Diastolic Blood Pressure 65.00 mm[Hg] [facility] Jan 22 20:57:00 EDT 2024 Systolic Blood Pressure 129.00 mm[Hg] [facility] Jan 22 20:57:00 EDT 2024 Diastolic Blood Pressure 65.00 mm[Hg] [facility] Jan 22 20:57:00 EDT 2024 Heart Rate 84.00 /min [facility] Jan 22 20:57 :00 EDT 2024 Systolic Blood Pressure 132.00 mm[Hg] [facility] Jan 22 09:08:27 EDT 2024 Diastolic Blood Pressure 78.00 mm[Hg] [facility] Jan 22 09:08:27 EDT 2024 Systolic Blood Pressure 132.00 mm[Hg] [facility] Jan 22 08:37:23 EDT 2024 Diastolic Blood Pressure 78.00 mm[Hg] [facility] Jan 22 08:37:23 EDT 2024 Pulse Oximetry 95.00 % [facility] Jan 22 08:37 :23 EDT 2024 Heart Rate 82.00 /min [facility] Jan 22 08:37 :23 EDT 2024 Body temperature 97.70 [degF] [facility] Jan 22 08:3 7:23 EDT 2024 Respiratory rate 16.00 /min WedJan 22 08:3 7:23 EDT 2024 Systolic Blood Pressure 132.00 mm[Hg] [facility] Jan 22 08:36:16 EDT 2024 Diastolic Blood Pressure 78.00 mm[Hg] [facility] Jan 22 08:36:16 EDT 2024 Heart Rate 82.00 /min [facility] Jan 22 08:36 :16 EDT 2024 Systolic Blood Pressure 136.00 mm[Hg] [place] Jan 21 21:31:48 EDT 2024 Diastolic Blood Pressure 72.00 mm[Hg] [place] Jan 21 21:31:48 EDT 2024 Pulse Oximetry 98.00 % [place] Jan 21 21:31 :48 EDT 2024 Heart Rate 89.00 /min [place] Jan 21 21:31 :48 EDT 2024 Body temperature 97.60 [degF] [place] Jan 21 21:3 1:48 EDT 2024 Respiratory rate 18.00 /min [place] Jan 21 21:3 1:48 EDT 2024 Systolic [...] 21:04:53 EDT 2024 Heart Rate 97.00 /min [facility] [place] 21 21:04 :53 EDT 2024 Body weight 125.80 [lb_av] [facility] [place] 21 13:39 :15 EDT 2024 Systolic Blood Pressure 146.00 mm[Hg] [facility] [place] 21 09:06:51 EDT 2024 Diastolic Blood Pressure 72.00 mm[Hg] [facility] [place] 21 09:06:51 EDT 5 Systolic Blood Pressure 146.00 mm[Hg] [facility] [place] 21 08:46:26 EDT 2024 Diastolic Blood Pressure 72.00 mm[Hg] [facility] [place] 21 08:46:26 EDT 2024 Pulse Oximetry 95.00 % [facility] [place] 21 08:46 :26 EDT 2024 Heart Rate 69.00 /min [facility] [place] 21 08:46 :26 EDT 2024 Body temperature 98.00 [degF] [facility] [place] 21 08:4 6:26 EDT 5 Respiratory rate 18.00 /min [facility] [place] 21 08:4 6:26 EDT 2024 Systolic Blood Pressure 146.00 mm[Hg] [facility] [place] 21 08:45:58 EDT 2024 Diastolic Blood Pressure 72.00 mm[Hg] [facility] [place] 21 08:45:58 EDT 2024 Heart Rate 69.00 /min [facility] [place] 21 08:45 :58 EDT 2024 Systolic [...] EDT 2024 Diastolic Blood Pressure 66.00 mm[Hg] [facility] Jose 19 21:01:36 EDT 2024 Heart Rate 86.00 /min [facility] [place] 19 21:01 :36 EDT 2024 Body weight 125.40 [lb_av] [facility] 19 14:24 :39 EDT 2024 Systolic Blood Pressure 153.00 mm[Hg] [facility] [place] 19 09:19:14 EDT 2024 Diastolic Blood Pressure 75.00 mm[Hg] [facility] [place] 19 09:19:14 EDT 2024 Systolic Blood Pressure 153.00 mm[Hg] [facility] [place] 19 09:19:14 EDT 2024 Diastolic Blood Pressure 75.00 mm[Hg] [facility] 19 09:19:14 EDT 2024 Systolic Blood Pressure 153.00 mm[Hg] [facility] [place] 19 09:19:14 EDT 2024 Diastolic Blood Pressure 75.00 mm[Hg] [facility] [place] 19 09:19:14 EDT 2024 Pulse Oximetry 95.00 % [facility] 19 09:19 :14 EDT 2024 Heart Rate 87.00 /min [facility] [place] 19 09:19 :14 EDT 2024 Heart Rate 87.00 /min [facility] [place] 19 09:19 :14 EDT 2024 Body temperature 98.30 [degF] [facility] 19 09:1 9:14 EDT 2024 Respiratory rate 20.00 /min [facility] [place] 19 09:1 9:14 EDT 2024 Systolic [...] EDT 2024 Diastolic Blood Pressure 57.00 mm[Hg] [facility] Jose 16 21:30:06 EDT 2024 Heart Rate 80.00 /min Wed 16 21:30 :06 EDT 2024 Body weight 123.80 [lb_av] [facility] [place] 16 09:19 :49 EDT 2024 Systolic Blood Pressure 154.00 mm[Hg] [facility] [place] 16 09:17:19 EDT 2024 Diastolic Blood Pressure 74.00 mm[Hg] [facility] [place] 16 09:17:19 EDT 2024 Pulse Oximetry 96.00 % [facility] [place] 16 09:17 :19 EDT 2024 Heart Rate 72.00 /min [facility] [place] 16 09:17 :19 EDT 2024 Body temperature 98.20 [degF] [facility] Jan 15 09:1 7:19 EDT 2024 Respiratory rate 20.00 /min [facility] Jan 15 09:1 7:19 EDT 2024 Systolic Blood Pressure 154.00 mm[Hg] [facility] [place] 16 09:16:20 EDT 2024 Diastolic Blood Pressure 74.00 mm[Hg] [facility] Jan 15 09:16:20 EDT 2024 Systolic Blood Pressure 154.00 mm[Hg] [facility] Jan 15 09:16:20 EDT 2024 Diastolic Blood Pressure 74.00 mm[Hg] [facility] [place] 16 09:16:20 EDT 2024 Heart Rate 72.00 /min [facility] Jan 15 09:16 :20 EDT 2024 Systolic [...] 2024 Systolic Blood Pressure 144.00 mm[Hg] Sat J[facility]e 14 20:29:08 EDT 2024 Diastolic Blood Pressure [...]
--- OUTSIDE RECORDS SUMMARY | 2025-03-20 08:33 | XMS_ITS | Clinical Summary ---
Author Organization [facility] Address [address] [place] [address] Care Team Providers Care Ms Access Database Developer Name Role Phone Unavailable Primary Care Provider Unavailabl e Allergies Active Allergy Reactions Criticality Noted Date Comments Emmanuel Inhibitors Cough Low 02/19/2009 Atorvastatin Muscle Pain Low 02/19/2009 Ciprofloxacin Unknown Low 02/19/2009 Clarithromycin Nausea and Vomiting Low 02/19/2009 Codeine Nausea and Vomiting Low 02/19/2009 Esomeprazole Magnesium Nausea and Vomiting Low 01/31 Hydrochlorothiazide Other (See Comments) Low 2008 pruritis Losartan Palpitations Low 02/19/2009 Lovastatin Itching Low 10/24/2012 jumpy Paroxetine Hcl Unknown Low 02/19/2009 Penicillins Rash Low 02/19/2009 Sulfa (Sulfonamide Antibiotics) Nausea and Vomiting Low 02/19/2009 Venlafaxine Unknown Low 02/19/2009 Medications famotidine (PEPCID) 20 mg tabletIndication s:Gastroesophage al reflux disease, esophagitis presence not specified Take 1 Tablet (20 mg) by mouth 2 times daily. 60 Tablet 11 02/26/2016 Active aliskiren (Tekturna) 150 mg Tablet TAKE 1 TABLET BY MOUTH EVERY DAY 90 Tablet 3 01/05/2022 Active meclizine (ANTIVERT) 12.5 mg tablet Take 1 Tablet (12.5 mg) by mouth 2 times daily as needed for Dizziness. 30 Tablet 3 08/17/2022 Active metoprolol tartrate (LOPRESSOR) 25 mg tablet TAKE 2 TABLETS BY MOUTH TWICE A DAY 360 Tablet 3 09/04/2022 Active ALPRAZolam (XANAX) 0.25 mg tabletIndication s:Anxiety state TAKE 1 TABLET BY MOUTH TWICE DAILY 60 Tablet 09/07/2022 Active Active Problems Patient Care Coordination No te Formatting of this note migh t be different from the original. AWV 09/02/2021 NON OP signed 05/30/2019 Problem Noted Date Diagnosed Date Inflammatory spondylopathy of lumbar region 12/2019 Spinal stenosis of lumbar re la with neurogenic claudication 06/13/2019 Overview (08/29/2019): Last Assessment & Plan: L3-4 and L4-5 lumbar spinal stenosis Chronic T12 compression fracture Recommended treatment is physical therapy 2 times a week over the next 6 weeks. She is to let me know her symptoms and status following treatment. If she continues to report symptoms I would recommend a CT scan of the lumbar spine and follow-up with our office for further evaluation and determination of subsequent treatment which will likely include epidural steroid injections. Basal cell carcinoma (BCC) of skin of left upper lip 12/12/2018 Moderate episode of recurrent major depressive d isorder 11/15/2017 Stage 3b chronic kidney disease 03/23/2017 BCC (basal cell carcinoma of skin) 06/03/2010 Overview (06/03/2010): Nose, scalp; 04/27/10 Anxiety state 02/19/2009 Pure hypercholesterolemia 02/19/2009 Gastroesophageal reflux disease without esophagi tis 02/19/2009 Essential hypertension, benign 02/19/2009 S/P partial colectomy 02/19/2009 Overview (04/21/2009): W/ appendectomy S/P appendectomy 02/19/2009 S/P cholecystectomy 02/19/2009 H/O malignant melanoma of skin 02/19/2009 Overview (02/19/2009): Left arm 1969 Immunizations Immunization Administration Dates Next Due (PNEUMOVAX 23)(50 YRS UP) PN EUMOCOCCAL POLYSACCHARIDE (PPV23) 0.5 ML, IM 09/15/2016 (PREVNAR 13)(6 WKS UP) PNEUM OCOCCAL CONJUGATE (PCV13) 0.5 ML, IM 08/13/2015 (Pfizer Bivalent)(12 Yr Up) COVID-19 Vaccine - Emergency Use Authorization, MRNA, Lnp-S(Pf) 30 Mcg/0.3 Ml Susp 06/09/2022 (SHINGRIX)(50 YRS UP) ZOSTER VACCINE RECOMBINANT, 0.5 ML, IM 09/02/2019,07/11/2019 (SPIKEVAX) (12 YRS UP PRIMAR Y SERIES) COVID-19 VACCINE - MRNA-1273(PF) 100 MCG/0.5 ML IM SUSP 06/02/2021,10/25/2020,09/26/2020 INFLUENZA VACCINE HIGH DOSE QUADRIVALENT 65 YR UP PF IM 06/02/2022 Influenza A (H1N1) Vaccine IM 07/02/2009 Influenza Seasonal Unspecifi ed Formulation IM 05/16/2021,06/17/2020,05/02/2019,05/04,06/04/2017,05/31/2016,04/30/2015 ,04/30/2015,05/18/2014,05/16/2013,05/03,05/02/2010,05/02/2009 Pneumococcal conjugate, unsp ecified formulation 05/02/2005 Zoster Vaccine Live SQ 06/02/2009 Family History Medical History Relation Name Comments Healthy Brother Other Father unknown Other Mother unknown Colon Cancer Paternal Grandfather Relation Name Status Comments Brother Alive Father Mother Paternal Grandfather Social History Tobacco Use Types Packs/Day Years Used Date Smoking Tobacco: Never Smokeless Tobacco: Never Tobacco Cessation:Counseling Given: Yes Alcohol Use Standard Drinks/Week Comments Yes 0.8 (1 standard drink = 0.6 oz p ure alcohol) Education Answer Date Recorded What is the highest level of school you have completed or the highest degree you have received? 12th grade 06/18/2020 Comments No Sex and Gender Information Value Date Recorded Sex Assigned at Not on file Legal Sex Female 4:49 AM PARTS PERSON Gender Identity Not on file Sexual Orientation Not on file Occupation Industry Job Start Date Job End Date Not on file Not on file Not on file Not on file Not on file Not on file Not on file Not on file Last Filed Vital Signs Vital Sign Reading Time Taken Comments Blood Pressure 128/80 09/07/2022 2:37 PM PARTS PERSON Pulse 68 09/07/2022 2:37 PM PARTS PERSON Temperature 36.6 C (97.8 F) 09/07/2022 2:37 PM PARTS PERSON Respiratory Rate 16 09/07/2022 2:37 PM PARTS PERSON Oxygen Saturation 96% 07/17/2014 7:57 AM PARTS PERSON Inhaled Oxygen Concentration - - Weight 60.4 kg (133 lb 3.2 oz) 09/07/2022 2:37 P M PARTS PERSON Height 157.5 cm (5' 2) 09/07/2022 2:37 PM PARTS PERSON Body Mass Index 24.36 09/07/2022 2:37 PM PARTS PERSON Plan of Treatment Health Maintenance Due Date Last Done Comments DTAP/TDAP/TD VACCINES (1 - Tdap) 1959 RSV VACCINE (60+ or ) (1 - 1-dose 75+ series) 2014 OSTEOPOROSIS SCREENING 02/11/2015 02/11/2010 COVID-19 Vaccine (2023-2 5 season) 2024 06/09/2022, 06/02/2021, 10/25/2020, Additional history exists INFLUENZA VACCINE (#1) 2025 , 05/16/2021, 06/17/2020, Additional history exists COLORECTAL SCREENING Discontinued 03/20/2014, 03/20/2014, 10/31/2005 Colorectal Cancer Screening Discontinued PNEUMOCOCCAL VACCINE 50+ YEARS Completed 0 09/15/2016, 08/13/2015, 05/02/2005 ZOSTER VACCINE Completed 09/02/2019, 07/02, 06/02/2009 FIT-DNA Q 3 years Discontinued FIT/FOBT Q 1 year Discontinued Flex Sig/CT Colonography Q 5 years Discontinued Insurance MEDICARE PART A AND B [facility] SUPP Advance Directives For more information, please contact: [phone] * Full Code (Latest Code Status on File) Date Activated Date Inactivated Comments 07/17/2014 7:05 AM 07/17/2014 10:11 AM * Full Code Date Activated Date Inactivated Comments 03/20/2014 7:40 AM 03/20/2014 11:20 AM
--- OUTSIDE RECORDS SUMMARY | 2025-03-20 08:33 | XMS_ITS | Encounter Summary ---
Author Organization [facility] Address [address] [place] [address] Care Team Providers Care Split Leather Mosser Name Role Phone Carlo Murphy MD Primary Care Provider [phone] Encounter Details Date Type Department Care Team (Late st Contact Info) Description 06/20/2007 Outpatient Historical [facility] Internal Medicine - [facility] [address] [phone] Carlo Murphy MD [address] [place] [phone] Social History Tobacco Use Types Packs/Day Years Used Date Smoking Tobacco: Never Assessed Comments Unknown Sex and Gender Information Value Date Recorded Sex Assigned at Not on file 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
--- OUTSIDE RECORDS SUMMARY | 2025-03-20 08:33 | XMS_ITS | Encounter Summary ---
Author Organization [facility] Address [address] [place] [address] Care Team Providers Care Senior Stock Plan Administrator Name Role Phone Carlo Murphy MD Primary Care Provider [phone] Encounter Details Date Type Department Care Team (Late st Contact Info) Description 01/13/[address] [facility]) [address] 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
--- OUTSIDE RECORDS SUMMARY | 2025-03-20 08:33 | XMS_ITS | Clinical Summary ---
Author Organization [facility] Address [address] [place] [address] Care Team Providers Care Disc Ruler Operator Name Role Phone Unknown, Provider Primary Care Provider Unavaila ble Source Comments [facility],non-owned Affiliates and Associated Physician Practices is amultiple site organization consisting of ambulatory clinics and hospital sitesin [place] and [place]. This disclosure is being madepursuant to the Care Everywhere program and may not contain all information available regarding this patient. Last updated 18.[facility] Allergies Active Allergy Reactions Criticality Noted Date Comments Codeine Vomiting 05/07/2019 Penicillins Rash Medium 05/07/2019 Immunizations Immunization Administration Dates Next Due INFLUENZA VACCINE, HIGH-DOSE , QUADR. (FLUZONE HIGH-DOSE QUADRIVALENT; 65Y+), 0.7 ML (HD-IIV4) 05/07/2019 Social History Tobacco Use Types Packs/Day Years Used Date Smoking Tobacco: Never Assessed Comments Unknown Sex and Gender Information Value Date Recorded Sex Assigned at Not on file Legal Sex Female 12:10 PM CDT Gender Identity Female 05/07/2019 12:33 PM CDT Sexual Orientation Not on file Plan of Treatment Health Maintenance Due Date Last Done Comments BONE DENSITY TESTING 1939 DTAP/TDAP/TD VACCINES (1 - Tdap) 1958 PNEUMOCOCCAL VACCINE 50+ (1 of 1 - PCV) 1989 ZOSTER VACCINE (1 of 2) 1989 Respiratory Syncytial Virus (RSV) Vaccine Pt: or over 60 yrs (1 - 1-dose 75+ series) 2014 COVID-19 VACCINE (1 - 2023- season) 2024 DEPRESSION SCREENING 08/02/2024 INFLUENZA VACCINE (#1) 2025 9, 05/04/2018, 06/04/2017, Additional history exists HEPATITIS B VACCINE Aged Out No longe r eligible based on patient's age to complete this topic HIB VACCINE Aged Out No longer eligi ble based on patient's age to complete this topic HPV VACCINE Aged Out No longer eligi ble based on patient's age to complete this topic MENINGOCOCCAL (Group B) VACCINE SHARED DECISION-MAKING Aged Out No longer eligible based on patient's age to complete this topic MENINGOCOCCAL GROUPS A/C/Y/W VACCINE Aged Out No longer eligible based on patient's age to complete this topic Insurance MEDICARE [facility] Care Teams Disc Ruler Operator Relationship Specialty Start Date End Date Unknown, Provider PCP - General 05/07/19
--- OUTSIDE RECORDS SUMMARY | 2025-03-20 08:33 | XMS_ITS | Encounter Summary ---
Author Organization [facility] Address [address] [place] [address] Care Team Providers Care Fence Installer Foreman Name Role Phone Carlo Murphy MD Primary Care Provider [phone] Encounter Details Date Type Department Care Team (Late st Contact Info) Description 01/27/[address] 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
--- OUTSIDE RECORDS SUMMARY | 2025-03-20 08:33 | XMS_ITS | Encounter Summary ---
Author Organization [facility] Address [address] [place] [address] Care Team Providers Care Animal Shelter Manager Name Role Phone Carlo Murphy MD Primary Care Provider [phone] Encounter Details Date Type Department Care Team (Late st Contact Info) Description 11/05/2005 Outpatient Historical [facility] Internal Medicine - [facility] [address] [phone] Carlo Murphy MD [address] [place] [phone] Social History Tobacco Use Types Packs/Day Years Used Date Smoking Tobacco: Never Assessed Comments Unknown Sex and Gender Information Value Date Recorded Sex Assigned at Not on file Legal Sex Female 4:49 AM MEDICATION COORDINATOR Gender Identity Not on file Sexual Orientation Not on file documented as of this encounter Plan of Treatment Not on file documented as of this encounter Visit Diagnoses Not on filedocumented in this encounter Care Teams Animal Shelter Manager Relationship Specialty Start Date End Date Carlo Murphy MD [address] [place] [phone] PCP - General 01/05/05 11/03/22 documented as of this encounter
--- OUTSIDE RECORDS SUMMARY | 2025-03-20 08:33 | XMS_ITS | Encounter Summary ---
Author Organization [facility] Address [address] [place] [address] Care Team Providers Care Densitometrist Name Role Phone Carlo Murphy MD Primary Care Provider [phone] Encounter Details Date Type Department Care Team (Late st Contact Info) Description 04/11/2007 Outpatient Historical [facility] Internal Medicine - [facility] [address] [phone] Carlo Murphy MD [address] [place] [phone] Social History Tobacco Use Types Packs/Day Years Used Date Smoking Tobacco: Never Assessed Comments Unknown Sex and Gender Information Value Date Recorded Sex Assigned at Not on file Legal Sex Female 4:49 AM 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
--- OUTSIDE RECORDS SUMMARY | 2025-03-20 08:33 | XMS_ITS | Clinical Summary ---
Author Organization [facility] Address [address] [place] [address] Care Team Providers Care Sponge Press Operator Name Role Phone Corona Stout MD Primary Care Provider [phone] Monse Valdez RN Unavailable [phone] Allergies Active Allergy Reactions Criticality Noted Date Comments Codeine Vomiting Low 12/06/2018 Penicillins Vomiting Low 03/24/2010 Tramadol Vomiting Low 12/06/2018 Medications famotidine (PEPCID) 20 mg tablet Take 1 tablet (20 mg total) by mouth 2 times daily 6 Active meclizine (ANTIVERT) 12.5 mg tablet Take 1 tablet (12.5 mg total) by mouth 2 (two) times a day as needed 3 Active aliskiren (TEKTURNA) 150 mg tabletIndicati ons:hypertensi on Take 0.5 tablets (75 mg total) by mouth daily 45 tablet 3 4 Active metoprolol tartrate (LOPRESSOR) 25 mg immediate release tablet Take 2 tablets (50 mg total) by mouth 2 (two) times a day 360 tablet 3 5 Active primidone (MYSOLINE) 50 mg tabletIndicati ons:Essential Tremor Take 1 tablet (50 mg total) by mouth nightly For tremor 30 tablet 5 Active Additional Information Patient not taking.Reported on 02/23/2025 ALPRAZolam (XANAX) 0.25 mg tablet Take 1 tablet (0.25 mg total) by mouth nightly as needed for anxiety or sleep 30 tablet 5 Active Additional Information Patient not taking.Reported on 02/23/2025 sertraline (ZOLOFT) 25 mg tablet Take 1 tablet (25 mg total) by mouth daily Active cyanocobalamin (Vitamin B-12) 100 mcg tabletIndicati ons:Prevention of Vitamin B12 Deficiency Take 1 tablet (100 mcg total) by mouth daily Active cholecalcifero l 25 mcg (1,000 unit) tablet Take 1 tablet (1,000 Units total) by mouth daily Active ferrous sulfate 325 mg (65 mg of elemental iron) tabletIndicati ons:Iron Deficiency Anemia Take 1 tablet (325 mg total) by mouth daily with breakfast Active apixaban (ELIQUIS) 5 mg tablet Take 1 tablet (5 mg total) by mouth 2 (two) times a day 180 tablet 5 Active amLODIPine (NORVASC) 5 mg tablet Take 1.5 tablets (7.5 mg total) by mouth daily 135 tablet 5 Active apixaban (ELIQUIS) 5 mg tablet Take 1 tablet (5 mg total) by mouth 2 (two) times a day 02/24/20 25 Discontin ued(Reord er) amLODIPine (NORVASC) 5 mg tablet Take 1.5 tablets (7.5 mg total) by mouth daily 02/24/20 25 Discontin ued(Reord er) Active Problems Problem Noted Date Diagnosed Date Retinal microaneurysm of right eye 06/27/2024 Overview (06/27/2024): Seen by ophtho HbA1c 5.9 06/23/2024 Recurrent cholesteatoma of p ostmastoidectomy cavity of right side 11/08/2023 Benign essential tremor 10/05/2023 Assessment & Plan (10/11/2024 8:49 PM CDT): Persistent essential tremor that is uncontrolled and interfering with ADLs. Will change from metoprolol to propranolol LA 60 mg daily. RTC in 6-8 weeks to re- evaluate symptoms during Medicare wellness visit. Assessment & Plan (04/06/2024 10:30 PM CDT): Persistent essential tremor. Assessment & Plan (10/05/2023 12:47 PM BOMB TECHNICIAN): Reassured patient benign nature of essential tremor Essential hypertension 10/29/2022 Assessment & Plan (10/11/2024 8:50 PM CDT): Target BP <140/90. Continue current diet and Tekturna. Changing metoprolol to propranolol long-acting Assessment & Plan (04/06/2024 10:29 PM CDT): Target BP <140/90. Continue current diet, Tekturna and metoprolol. Check CBC, CMP and FLP. Assessment & Plan (10/05/2023 12:48 PM BOMB TECHNICIAN): Target BP <140/90. Continue current diet, Tekturna and metoprolol. Assessment & Plan (06/09/2023 4:41 PM BOMB TECHNICIAN): Target BP less than 130/80. Continue current diet, Tekturna and metoprolol. Check CBC, CMP and FLP. Assessment & Plan (10/29/2022 12:57 PM CDT): Target BP less than 130/80. Continue current diet, generic Tekturna HCT and metoprolol. Primary insomnia 10/29/2022 Assessment & Plan (06/09/2023 4:40 PM BOMB TECHNICIAN): P.r.n. alprazolam. Assessment & Plan (10/29/2022 12:57 PM CDT): Managed for the past 12-14 years on nightly alprazolam. Discussedlikely situation of dependence for this sleep aid and issues of rebound insomnia.. Patient will gradually decrease on her own. Gastroesophageal reflux disease without esophagi tis 10/29/2022 Assessment & Plan (06/09/2023 4:40 PM BOMB TECHNICIAN): Continue with famotidine. Assessment & Plan (10/29/2022 12:56 PM CDT): Discussed lifestyle changes to manage GERD. Continue famotidine 20 mg b.i.d.. History of EGD in 2014. Spinal stenosis, lumbar region with neurogenic c laudication 03/15/2020 Overview (03/15/2020): Added automatically from request for surgery [id number] Assessment & Plan (04/06/2024 10:29 PM CDT): Activity as tolerated. Assessment & Plan (10/05/2023 12:48 PM BOMB TECHNICIAN): Activity as tolerated. Last lumbar surgery in 2019. Patient currently is not interested in further interventions. Assessment & Plan (06/09/2023 4:40 PM BOMB TECHNICIAN): More symptomatic lumbar spinal stenosis. Patient willing to try PT. Assessment & Plan (10/29/2022 12:57 PM CDT): Status post lumbar surgery in 2019. Managing with activity as tolerated. Assessment & Plan (05/27/2021 12:21 PM CDT): Assessment Pseudoarthrosis L4-5 with spondylolisthesis and halos around the L5 pedicle screws the low overall level pain Plan Observation for now her symptoms change she is up always welcome to call and we can schedule revision Assessment & Plan (07/16/2020 12:15 PM BOMB TECHNICIAN): Assessment Healing fusion L3-5 Plan Observation. I talked her about do's and don'ts and prescribed her Medrol Dosepak for her slight increase in symptoms over last few days. She is to return in a month for an x-ray in a discussion whether she needs therapy are not Assessment & Plan (05/28/2020 10:53 AM CDT): Assessment Healing fusion L3-5 Plan . Tramadol due to nausea. I gave her Zofran to temporarily help. I added Mobic for an anti-inflammatory and told her she can take that and Tylenol She is to return in 2 months for an x-ray Basal cell carcinoma (BCC) of skin of left upper lip 12/12/2018 Encounters Date Type Department Care Team Description 03/08/[address] [facility] Organization [address] [place] [address] Julia Patel MA 02/23/2025 Telephone [facility] Medical Group at the [address] [phone] Corona Stout MD need [facility] records 01/31/2025 Telephone [facility] Medical Group at the [address] [phone] Corona Stout MD needs KANDICE - unable to reach pt 01/30/2025 ACO Outreach [address] [address] Monse Valdez RN from Last 3 Months Immunizations Immunization Administration Dates Next Due H1N1 Inj 07/02/2009 Influenza, Quadrivalent, Hig h Dose, Preservative Free, Intrr 06/09/2023,06/02/2022,06/17/2020,05/07 Influenza, Trivalent, High D ose, Split, Preservative Free, Intramuscular 07/11/2024,05/07/2019,05/04/2018,06/04 Influenza, Trivalent, IM (MDV) ,06/17/2020,05/02/2019,05/04,05/31/2016,04/30/2015,05/18/2014 ,05/16/2013,05/21/2011,05/02/2010,08/2008 Moderna SARS-CoV-2 Monovalen t Vaccination (12+ YRS) 06/02/2021,10/25/2020,09/26/2020 Pfizer Sars-Cov-2 Bivalent V accination (12+ YRS) 06/09/2022 Pneumococcal Conjugate PCV 13 08/13/2015 Pneumococcal Conjugate, Unspecified 05/02/2005 Pneumococcal Polysaccharide PPV23 09/15/2016 ZOSTER LIVE 06/02/2009 ZOSTER Recombinant 09/12/2019,09/02/2019, 019 Surgical History Surgery Date Site/Laterality Comments CHOLECYSTECTOMY MOHS SURGERY COLECTOMY and appendectomy > 40 years ago SPINAL FUSION 04/24/2020 L3-5 PLF - DR FERNANDEZ Medical History Medical History Date Comments Hypertension GERD (gastroesophageal reflux disease) Lumbar stenosis with neurogenic claudication History of basal cell carcinoma (BCC) of skin Dyslipidemia Anxiety Glaucoma CKD (chronic kidney disease) stage 3, GFR 30-59 ml/min (HCC) Osteoarthritis Social History Tobacco Use Types Packs/Day Years Used Date Smoking Tobacco: Never Smokeless Tobacco: Never Tobacco Cessation:Counseling Given: Not Answered Alcohol Use Standard Drinks/Week Comments Never 0 (1 standard drink = 0.6 oz pur e alcohol) [facility] Utilities Answer Date Recorded In the past 12 months has e [employer], gas, oil, or water [employer] threatened to shut off services in your home? No 02/15/2025 Social Connection and Isolation Panel Answer Date Recorded In a typical week, how many times do you talk on the phone with family, friends, or neighbors? More than three times a week 02/15/2025 How often do you get togethe r with friends or relatives? More than three times a week 02/15/2025 How often do you attend chur ch or orthodox services? Never 02/15/2025 Do you belong to any clubs o r organizations such as evangelical groups, unions, fraternal or athletic groups, or school groups? No 02/15/2025 How often do you attend meet ings of the clubs or organizations you belong to? Never 02/15/2025 Are you , , di vorced, , never , or living with a partner? 02/15/2025 AUDIT-C Answer Date Recorded Q1: How often do you have a drink containing alcohol? Never 10/05/2023 Q2: How many drinks containi ng alcohol do you have on a typical day when you are drinking? Patient does not drink Q3: How often do you have si x or more drinks on one occasion? Never 10/05/2023 Overall Financial Resource Strain (CARDIA) Answe r Date Recorded How hard is it for you to pa y for the very basics like food, housing, medical care, and heating? Not hard at all 02/15/2025 PHQ-2 Answer Date Recorded PHQ-2 Total Score (If total score is 3 or more points, staff should administer the PHQ-9) 0 10/05/2023 Hunger Vital Sign Answer Date Recorded Within the past 12 months, y ou worried that your food would run out before you got the money to buy more. Never true 02/16/20 25 Within the past 12 months, t he food you bought just didn't last and you didn't have money to get more. Never true 02/15/2025 PRAPARE - Transportation Answer Date Re corded In the past 12 months, has l ack of transportation kept you from medical appointments or from getting medications? No 01/30 In the past 12 months, has l ack of transportation kept you from meetings, work, or from getting things needed for daily living? No 02/15/2025 Housing Stability Vital Sign Answer Matt e Recorded In the last 12 months, was t here a time when you were not able to pay the mortgage or rent on time? No 02/15/2025 In the past 12 months, how m any times have you moved where you were living? 1 02/15/2025 At any time in the [facility] were you homeless or living in a senior care (including now)? No 02/15/2025 Comments No Sex and Gender Information Value Date Recorded Sex Assigned at Not on file Legal Sex Female 7:47 PM BOMB TECHNICIAN Gender Identity Not on file Sexual Orientation Not on file Obstetrics History Last Filed Vital Signs Vital Sign Reading Time Taken Comments Blood Pressure 138/80 10/11/2024 12:10 PM CDT Pulse 87 10/11/2024 11:31 AM CDT Temperature 36.3 C (97.4 F) 08/30/2020 12:39 PM BOMB TECHNICIAN Respiratory Rate 18 10/11/2024 11:31 AM CDT Oxygen Saturation 98% 10/11/2024 11:31 AM CDT Inhaled Oxygen Concentration - - Weight 60.5 kg (133 lb 6.4 oz) 10/11/2024 11:31 AM CDT Height 151.1 cm (4' 11.5) 10/11/2024 11:31 AM C DT Body Mass Index 26.49 10/11/2024 11:31 AM CDT Plan of Treatment Health Maintenance Due Date Last Done Comments Osteoporosis Screening-Bone Density Scan 1940 DTaP/Tdap/Td Vaccine (1 - Tdap) 1950 Hepatitis B Screening 1958 Covid-19 Vaccine (5 - 2023-2 5 season) 2024 06/09/2022, 06/02/2021, 10/25/2020, Additional history exists Depression Screening 10/04/2024 10/05/2023, 10/29/2022, 06/13/2019, Additional history exists Well Visit 65+ 10/04/2024 10/05/2023 Influenza Vaccine (#1) 2025 , 06/09/2023, 06/02/2022, Additional history exists Fall Risk Assessment 10/11/2025 10/11/2024, 10/05/2023, 10/29/2022, Additional history exists Pneumococcal vaccine 65+ Completed 017, 08/13/2015, 05/02/2005 Zoster Vaccine Completed 09/12/2019, 08/2019, 07/11/2019, Additional history exists Goals Goal Patient Goal Type Associated Problems Recent Progress Patient-Stated? Author KANDICE General Goal - Patient schedules and keeps appointments with all recommended providers ACO Care Management Improving( 4:33 PM CDT) No Monse Valdez RN Note: Problem: Potential for medical complications and readmission if follow-up appointments are not scheduled Interventions: - Ensure all follow-up appointments are scheduled, all prescribed medications have been received. - Address any barriers for keeping scheduled appointment. - Coordinate with patient/caregiver(s) to ensure patient is able to keep scheduled appointment. - Emphasize importance of keeping scheduled appointments. - Identify and discuss questions for next provider visit. - Follow up with patient after scheduled appointment(s) to review any new orders or changes made to medication regimen. KANDICE General Goal - Patient / caregiver verbalizes lifestyle changes necessary to meet self-care needs and executes self-care activities to utmost capability ACO Care Management Improving( 4:33 PM CDT) No Monse Valdez RN Note: Problem: At Risk for Self Care Deficit Interventions: - Assess patient's level of dependence on others along with current level of assistance being provided. - Use motivational interviewing to help guide the patient in accepting the needed amount of assisstance, as applicable. - Contact caregiver and assess their involvement with patient and level of assistance provided, as appropriate. - Assess appropriateness for Home Health. Start referral process if skilled need is present. - Encourage independent ADL's as appropriate. Ensure patient has the appropriate tools at home to be as independent as possible. - Provide fall prevention education to patient and caregiver. - Evaluate need for assistive devices. - Refer to SW if appropriate and patient is agreeable. Medical Devices Implanted Type Area Enterprise Integration Architect Device Identifier Shelf Expiration Date Model / Serial / Lot Isto Venuetastic [id number] Inqu Paste Mix Plus Carbon Dioxide Operator 10cc Bone Graft Hyaluronic Acid Poly - [id number] Implanted:Qty: 1 on 04/24/2020 by Carlo Fernandez MD at [facility] N/A: Spine Lumbar [employer] [id number] 07/14/2021 [id number] / / [id number] [employer] -65-40 Streamline 6.5mm 40mm Polyaxial Spine Pedicle Screw Bone - [id number] Implanted:Qty: 6 on 04/24/2020 by Carlo Fernandez MD at [facility] N/A: Spine Lumbar [employer] -65-4 0 / / Screw Set Streamline Tl Screw System - [id number] Implanted:Qty: 6 on 04/24/2020 by Carlo Fernandez MD at [facility] N/A: Spine Lumbar [employer] -SETSCRE W / / [employer] Pr-60 Quantum 5.5mm 60mm Prebent Vick Spinal Titanium - [id number] Implanted:Qty: 2 on 04/24/2020 by Carlo Fernandez MD at [facility] N/A: Spine Lumbar [employer] MS-6 0 / / [place] [address] [place] [address] [place] [address] [place] [address] [place] [address] MEDICARE MEDICARE Advance Directives For more information, please contact: [phone] * Full Code (Latest Code Status on File) Date Activated Date Inactivated Comments 04/24/2020 6:12 PM 04/26/2020 6:01 PM Care Teams Sponge Press Operator Relationship Specialty Start Date End Date Corona Stout MD [address] [place] [address] DR Denita [address]SH[address] [place] [address] PCP - General Internal Medicine 10/28/22 Monse Valdez RN [address] [place] [address] Dr [address]SH[address] [place] [address] Customs Investigator 01/30/25
--- OUTSIDE RECORDS SUMMARY | 2025-03-20 08:33 | XMS_ITS | Encounter Summary ---
Author Organization [facility] Address [address] [place] [address] Care Team Providers Care Gynecological Assistant Name Role Phone Carlo Murphy MD Primary Care Provider [phone] Encounter Details Date Type Department Care Team (Late st Contact Info) Description 06/08/2005 Outpatient Historical [facility] Internal Medicine - [facility] [address] [phone] Carlo Murphy MD [address] [place] [phone] Social History Tobacco Use Types Packs/Day Years Used Date Smoking Tobacco: Never Assessed Comments Unknown Sex and Gender Information Value Date Recorded Sex Assigned at Not on file Legal Sex Female 4:49 AM CRYSTAL MACHINING COORDINATOR Gender Identity Not on file Sexual Orientation Not on file documented as of this encounter Plan of Treatment Not on file documented as of this encounter Visit Diagnoses Not on filedocumented in this encounter Care Teams Gynecological Assistant Relationship Specialty Start Date End Date Carlo Murphy MD [address] [place] [phone] PCP - General 01/05/05 11/03/22 documented as of this encounter
--- OUTSIDE RECORDS SUMMARY | 2025-03-20 08:33 | XMS_ITS | Encounter Summary ---
Author Organization [facility] Healthcare Address [address] [place] [address] Care Team Providers Care Pizzamaker Name Role Phone Corona Stout MD Primary Care Provider Monse Valdez RN Unavailable Reason for Visit * Reason Onset Date Comments need [facility] records 02/23/2025 Encounter Details Date Type Department Care Team (Late st Contact Info) Description 02/23/2025 Telephone [facility] Medical Group at the [address] [place] [address] Corona Stout MD [address] [place] [address] [address] [place] [address] [facility] records Social History Tobacco Use Types Packs/Day Years Used Date Smoking Tobacco: Never Smokeless Tobacco: Never Alcohol Use Standard Drinks/Week Comments Never 0 (1 standard drink = 0.6 oz pur e alcohol) [facility] Utilities Answer Date Recorded In the past 12 months has [email or web address] electric, gas, oil, or water [employer] threatened to shut off services in your [...] week 02/15/2025 How often do you attend [facility] or christianity services? Never 02/15/2025 Do you belong to any clubs o r organizations such as sikhism groups, unions, fraternal or athletic groups, or [...] any time in the past 12 m [facility], were you homeless or living in a care home (including now)? No 02/15/2025 Comments No Sex and Gender Information Value Date Recorded Sex Assigned at Not on file Legal Sex Female 7:47 PM PST SUPERVISOR Gender Identity Not on file Sexual Orientation Not on file documented as of this encounter Miscellaneous Notes * Telephone Encounter - Corona Stout MD - 02/23/2025 3:46 PM CDT Medications refilled. * Telephone Encounter - Monse Valdez RN - 02/23/2025 9:45 AM CDT ACO RN/CM spoke with pt who states she was IP at [facility] 12/26-01/09/25 #1 Please request records from [facility] fax# [phone] #2 sending request for refill on Eliquis and amlodipine pt states ordered from [facility] and was taking while in SNF Thank You, Monse Valdez RN [facility] Medical Group ACO [phone] [email or web address] documented in this encounter Plan of Treatment Not on file documented as of this encounter Goals Goal Patient Goal Type Associated Problems [...] SW if appropriate and patient is agreeable. documented as of this encounter Visit Diagnoses Not on filedocumented in this encounter Care Teams Pizzamaker Relationship Specialty Start Date End Date Corona Stout MD [address] [place] [address] DR Denita [address] [place] [address] PCP - General Internal Medicine 10/28/22 Monse Valdez RN [address] [place] [address] [address] [place] [address] Side Piece Coverer 01/30/25 documented as of this encounter
--- OUTSIDE RECORDS SUMMARY | 2025-03-20 08:33 | XMS_ITS | Encounter Summary ---
Author Organization [facility] Address [address] [place] [address] Care Team Providers Care Bundle Cutter Name Role Phone Carlo Murphy MD Primary Care Provider [phone] Encounter Details Date Type Department Care Team (Latest Contact Info) Description 01/20/2005 Outpatient Historical HIS PATIENT IN A BED Carlo Feliz MD [address] [facility] [id number] [place] [phone] CHRONIC CHOLECYSTITIS NEC (Primary Dx) Social History Tobacco Use Types Packs/Day Years Used Date Smoking Tobacco: Never Assessed Comments Unknown Sex and Gender Information Value Date Recorded Sex Assigned at Not on file Legal Sex Female 4:49 AM PROGRAM TECHNICIAN Gender Identity Not on file Sexual Orientation Not on file documented as of this encounter Plan of Treatment Not on file documented as of this encounter Procedures Procedure Name Priority Date/Time Associated Diagnosis Comments CBC WITH DIFFERENTIAL Routine 01/13/2005 10:48 AM CDT CBC WITH DIFFERENTIAL Routine 01/13/2005 10:48 AM CDT HEPATIC FUNCTION PANEL Routine 01/13/2005 10:48 AM CDT BASIC METABOLIC PANEL Routine 01/13/2005 10:48 AM CDT documented in this encounter Results * CBC WITH DIFFERENTIAL (01/13/2005 10:48 AM CDT) NEUTROPHILS 49 45 - 70 % INTERFAC E SYSTEM LYMPHOCYTES 38 16 - 45 % INTERFAC E SYSTEM MONOCYTES 9 3 - 13 % INTERFACE SYSTEM EOSINOPHILS 4 0 - 7 % INTERFAC E SYSTEM BASOPHILS 0 0 - 2 % INTERFACE SYSTEM NEUTROPHIL ABSOLUTE 3.12 1.90 - 7.00 K/uL INTERFACE SYSTEM LYMPHOCYTE ABSOLUTE 2.44 0.70 - 4.50 K/uL INTERFACE SYSTEM MONOCYTE ABSOLUTE 0.57 0.10 - 1.30 K/uL INTERFACE SYSTEM EOSINOPHIL ABSOLUTE 0.26 0.00 - 0.70 K/uL INTERFACE SYSTEM BASOPHILS ABSOLUTE 0.01 0.00 - 0.20 K/uL INTERFACE SYSTEM 01/13/2005 10:4 8 AM CDT Carlo Feliz MD HEMATOLOGY ORDERABLES Final R esult INTERFACE SYSTEM Refer to clinic/hospital department * CBC WITH DIFFERENTIAL (01/13/2005 10:48 AM CDT) WBC 6.4 4.0 - 9.8 K/uL INTERFACE SYSTEM RBC 4.21 3.90 - 4.90 M/uL INTERFACE SYSTEM HEMOGLOBIN 13.1 11.8 - 14.8 g/dL INTERFACE SYSTEM HEMATOCRIT 40.1 35.5 - 44.0 % INTERFACE SYSTEM MCV 95.2 82.0 - 99.0 fL INTERFACE SYSTEM MCH 31.1 27.2 - 32.6 pg INTERFACE SYSTEM MCHC 32.7 31.5 - 35.5 % INTERFACE SYSTEM RDW 12.5 11.5 - 14.5 % INTERFACE SYSTEM RDW-STDEV 43.6 37.1 - 48.7 fL INTERFACE SYSTEM PLATELETS 247 140 - 350 K/uL INTERFACE SYSTEM MPV 10.6 9.3 - 12.4 fL INTERFACE SYSTEM 01/13/2005 10:4 8 AM CDT Carlo Feliz MD HEMATOLOGY ORDERABLES Final R esult INTERFACE SYSTEM Refer to clinic/hospital department * (ABNORMAL) HEPATIC FUNCTION PANEL (01/13/2005 10:48 AM CDT) AST 68(H) 12 - 32 U/L INTERFACE SYSTEM ALKALINE PHOSPHATASE 57 35 - 104 U/L INTERFACE SYSTEM BILIRUBIN TOTAL 0.9 0.2 - 1.0 mg/dL INTERFACE SYSTEM ALBUMIN 4.3 3.4 - 4.8 g/dL INTERFACE SYSTEM TOTAL PROTEIN 8.0 6.3 - 8.6 g/dL INTERFACE SYSTEM ALT 81(H) 0 - 31 U/L INTERFACE SYSTEM BILIRUBIN DIRECT 0.1 0.0 - 0.3 mg/dL INTERFACE SYSTEM 01/13/2005 10:4 8 AM CDT us Carlo Feliz MD CHEMISTRY ORDERABLES Final Re sult Performing Organization Address [facility] Phone Number INTERFACE SYSTEM Refer to clinic/hospital department * BASIC METABOLIC PANEL (01/13/2005 10:48 AM CDT) GLUCOSE 69 65 - 109 mg/dL INTERFACE SYSTEM CREATININE 0.9 0.4 - 1.2 mg/dL INTERFACE SYSTEM CALCIUM 9.4 8.6 - 10.2 mg/dL INTERFACE SYSTEM BUN 19 6 - 20 mg/dL INTERFACE SYSTEM SODIUM 139 135 - 145 mmol/L INTERFACE SYSTEM POTASSIUM 4.5 3.5 - 4.9 mmol/L INTERFACE SYSTEM CHLORIDE 104 96 - 108 mmol/L INTERFACE SYSTEM CO2 26 22 - 30 mmol/L INTERFACE SYSTEM 01/13/2005 10:4 8 AM CDT Carlo Feliz MD CHEMISTRY ORDERABLES Final Re sult Performing Organization Address [facility] Phone Number INTERFACE SYSTEM Refer to clinic/hospital department documented in this encounter Visit Diagnoses Diagnosis Chronic cholecystitis- Primary documented in this encounter Care Teams Bundle Cutter Relationship Specialty Start Date End Date Carlo Murphy MD [address] [place] [address] [place] [phone] PCP - General 01/05/05 11/03/22 documented as of this encounter
--- OUTSIDE RECORDS SUMMARY | 2025-03-20 08:33 | XMS_ITS | Encounter Summary ---
Author Organization [facility] Address [address] [place] [address] Care Team Providers Care Mid Level Java Developer Name Role Phone Carlo Murphy MD Primary Care Provider [phone] Encounter Details Date Type Department Care Team (Late st Contact Info) Description 04/13/[address] [facility] Internal Medicine - [facility] [address] [phone] Carlo Murphy MD [address] [place] [phone] Social History Tobacco Use Types Packs/Day Years Used Date Smoking Tobacco: Never Assessed Comments Unknown Sex and Gender Information Value Date Recorded Sex Assigned at Not on file Legal Sex Female 4:49 AM PROPOSAL SPECIALIST Gender Identity Not on file Sexual Orientation Not on file documented as of this encounter Plan of Treatment Not on file documented as of this encounter Visit Diagnoses Not on filedocumented in this encounter Care Teams Mid Level Java Developer Relationship Specialty Start Date End Date Carlo Murphy MD [address] [place] [phone] PCP - General 01/05/05 11/03/22 documented as of this encounter
--- OUTSIDE RECORDS SUMMARY | 2025-03-20 08:33 | XMS_ITS ---
Author Organization [facility] Address [address] [place] [address] Care Team Providers Care Turning Sander Tender Name Role Phone Corona Stout MD Primary Care Provider [phone] Monse Valdez RN Unavailable [phone] Active Problems Problem Noted Date Diagnosed Date [...] tremor. Assessment & Plan (10/05/2023 12:47 PM SUGGESTION CLERK): Reassured patient benign nature of essential tremor Essential hypertension 10/29/2022 Assessment & Plan (10/11/2024 8:50 PM CDT): Target BP <140/90. Continue current diet and Tekturna. Changing metoprolol to propranolol long-acting Assessment & Plan (04/06/2024 10:29 PM CDT): Target BP <140/90. Continue current diet, Tekturna and metoprolol. Check CBC, CMP and FLP. Assessment & Plan (10/05/2023 12:48 PM SUGGESTION CLERK): Target BP <140/90. Continue current diet, Tekturna and metoprolol. Assessment & Plan (06/09/2023 4:41 PM SUGGESTION CLERK): Target BP less than 130/80. Continue current diet, Tekturna and metoprolol. Check CBC, CMP and FLP. Assessment & Plan (10/29/2022 12:57 PM CDT): Target BP less than 130/80. Continue current diet, generic Tekturna HCT and metoprolol. Primary insomnia 10/29/2022 Assessment & Plan (06/09/2023 4:40 PM SUGGESTION CLERK): P.r.n. alprazolam. Assessment & Plan (10/29/2022 12:57 PM CDT): Managed for the past 12-14 years on nightly alprazolam. Discussedlikely situation of dependence for this sleep aid and issues of rebound insomnia.. Patient will gradually decrease on her own. Gastroesophageal reflux disease without esophagi tis 10/29/2022 Assessment & Plan (06/09/2023 4:40 PM SUGGESTION CLERK): Continue with famotidine. Assessment & Plan (10/29/2022 12:56 PM CDT): Discussed lifestyle changes to manage GERD. Continue famotidine 20 mg b.i.d.. History of EGD in 2013. Spinal stenosis, lumbar region with neurogenic c laudication 03/15/2020 Overview (03/15/2020): Added automatically from request for surgery [id number] Assessment & Plan (04/06/2024 10:29 PM CDT): Activity as tolerated. Assessment & Plan (10/05/2023 12:48 PM SUGGESTION CLERK): Activity as tolerated. Last lumbar surgery in 2019. Patient currently is not interested in further interventions. Assessment & Plan (06/09/2023 4:40 PM SUGGESTION CLERK): More symptomatic lumbar spinal stenosis. Patient willing [...] revision Assessment & Plan (07/16/2020 12:15 PM SUGGESTION CLERK): Assessment Healing fusion L3-5 Plan Observation. I [...] of skin of left upper lip 12/12/2018 Current Treatment and Therapy Plans No current plan information found. Past Treatment and Therapy Plans No past plan information found. Lifetime Dose Tracking * Chemical Lifetime Dose Automatic Entry Manual Entr y DLP 569 mGycm 569 mGycm 0 mGycm
--- OUTSIDE RECORDS SUMMARY | 2025-03-20 08:34 | XMS_ITS | Encounter Summary ---
Author Organization [employer] Address [address] [place] [address] Care Team Providers Care Voice Studies Director Name Role Phone Carlo Murphy MD Primary Care Provider [phone] Encounter Details Date Type Department Care Team (Late st Contact Info) Description 09/07/2005 Outpatient Historical [facility] [address] [facility] 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
--- OUTSIDE RECORDS SUMMARY | 2025-03-20 08:34 | XMS_ITS | Encounter Summary ---
Author Organization [employer] Address [address] [place] [address] Care Team Providers Care Maintenance Shop Laborer Name Role Phone Carlo Murphy MD Primary Care Provider [phone] Encounter Details Date Type Department Care Team (Late st Contact Info) Description 09/07/2005 Outpatient Historical [facility] [address] [place] [address] [place] [address] [facility] [address] [place] [id number] Social History Tobacco Use Types Packs/Day Years Used Date Smoking Tobacco: Never Assessed Comments Unknown Sex and Gender Information Value Date Recorded Sex Assigned at Not on file Legal Sex Female 4:49 AM LINUX CONSULTANT Gender Identity Not on file Sexual Orientation Not on file documented as of this encounter Plan of Treatment Not on file documented as of this encounter Visit Diagnoses Not on filedocumented in this encounter Care Teams Maintenance Shop Laborer Relationship Specialty Start Date End Date Carlo Murphy MD [address] [place] [address] [address] [place] [phone] PCP - General 01/05/05 11/03/22 documented as of this encounter
--- OUTSIDE RECORDS SUMMARY | 2025-03-20 08:34 | XMS_ITS | Encounter Summary ---
Author Organization [facility] Address [address] [place] [address] Care Team Providers Care Bridge Engineer Name Role Phone Carlo Murphy MD Primary Care Provider [phone] Encounter Details Date Type Department Care Team (Late st Contact Info) Description 02/20/2002 Outpatient Historical [facility] Internal Medicine - [facility] [address] [phone] Carlo Murphy MD [address] [place] [phone] Social History Tobacco Use Types Packs/Day Years Used Date Smoking Tobacco: Never Assessed Comments Unknown Sex and Gender Information Value Date Recorded Sex Assigned at Not on file Legal Sex Female 4:49 AM DICTATING MACHINE TRANSCRIBER Gender Identity Not on file Sexual Orientation Not on file documented as of this encounter Plan of Treatment Not on file documented as of this encounter Visit Diagnoses Not on filedocumented in this encounter Care Teams Bridge Engineer Relationship Specialty Start Date End Date Carlo Murphy MD [address] [place] [phone] PCP - General 01/05/05 11/03/22 documented as of this encounter
--- OUTSIDE RECORDS SUMMARY | 2025-03-20 08:34 | XMS_ITS | Encounter Summary ---
Author Organization [facility] Address [address] [place] [address] Care Team Providers Care Offset Machine Operator Name Role Phone Carlo Murphy MD Primary Care Provider [phone] Encounter Details Date Type Department Care Team (Late st Contact Info) Description 11/24/2004 Outpatient Historical [facility] Internal Medicine - [facility] [address] [phone] Carlo Murphy MD [address] [place] [phone] Social History Tobacco Use Types Packs/Day Years Used Date Smoking Tobacco: Never Assessed Comments Unknown Sex and Gender Information Value Date Recorded Sex Assigned at Not on file Legal Sex Female 4:49 AM ROOFER APPRENTICE Gender Identity Not on file Sexual Orientation Not on file documented as of this encounter Plan of Treatment Not on file documented as of this encounter Visit Diagnoses Not on filedocumented in this encounter Care Teams Offset Machine Operator Relationship Specialty Start Date End Date Carlo Murphy MD [address] [place] [phone] PCP - General 01/05/05 11/03/22 documented as of this encounter
--- OUTSIDE RECORDS SUMMARY | 2025-03-20 08:34 | XMS_ITS | Encounter Summary ---
Author Organization [facility] Address [address] [place] [address] Care Team Providers Care Digital Production Manager Name Role Phone Carlo Murphy MD Primary Care Provider [phone] Encounter Details Date Type Department Care Team (Late st Contact Info) Description 03/22/2006 Outpatient Historical [facility] Internal Medicine - [facility] [address] [phone] Carlo Murphy MD [address] [place] [phone] Social History Tobacco Use Types Packs/Day Years Used Date Smoking Tobacco: Never Assessed Comments Unknown Sex and Gender Information Value Date Recorded Sex Assigned at Not on file Legal Sex Female 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
--- OUTSIDE RECORDS SUMMARY | 2025-03-20 08:34 | XMS_ITS | Encounter Summary ---
Author Organization [facility] Address [address] [place] [address] Care Team Providers Care Senior Research Fellow Name Role Phone Carlo Murphy MD Primary Care Provider [phone] Encounter Details Date Type Department Care Team (Late st Contact Info) Description 04/25/2002 Outpatient Historical [facility] Internal Medicine - [facility] [address] [phone] Carlo Murphy MD [address] [place] [phone] Social History Tobacco Use Types Packs/Day Years Used Date Smoking Tobacco: Never Assessed Comments Unknown Sex and Gender Information Value Date Recorded Sex Assigned at Not on file Legal Sex Female 4:49 AM 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
--- OUTSIDE RECORDS SUMMARY | 2025-03-20 08:34 | XMS_ITS | Encounter Summary ---
Author Organization [facility] Address [address] [place] [address] Care Team Providers Care Shim Plug Cutter Name Role Phone Carlo Murphy MD Primary Care Provider [phone] Encounter Details Date Type Department Care Team (Late st Contact Info) Description 12/22/[address] [facility] Internal Medicine - [facility] [address] [phone] Carlo Murphy MD [address] [place] [phone] Social History Tobacco Use Types Packs/Day Years Used Date Smoking Tobacco: Never Assessed Comments Unknown Sex and Gender Information Value Date Recorded Sex Assigned at Not on file Legal Sex Female 4:49 AM TRIM SETTER Gender Identity Not on file Sexual Orientation Not on file documented as of this encounter Plan of Treatment Not on file documented as of this encounter Visit Diagnoses Not on filedocumented in this encounter Care Teams Shim Plug Cutter Relationship Specialty Start Date End Date Carlo Murphy MD [address] [place] [phone] PCP - General 01/05/05 11/03/22 documented as of this encounter
--- OUTSIDE RECORDS SUMMARY | 2025-03-20 08:34 | XMS_ITS | Encounter Summary ---
Author Organization [facility] Address [address] [place] [address] Care Team Providers Care Salesperson Yard Goods Name Role Phone Carlo Murphy MD Primary Care Provider [phone] Encounter Details Date Type Department Care Team (Late st Contact Info) Description 07/19/2006 Outpatient Historical [facility] Internal Medicine - [facility] [address] [phone] Carlo Murphy MD [address] [place] [phone] Social History Tobacco Use Types Packs/Day Years Used Date Smoking Tobacco: Never Assessed Comments Unknown Sex and Gender Information Value Date Recorded Sex Assigned at Not on file Legal Sex Female 4:49 AM HEATER WORKER Gender Identity Not on file Sexual Orientation Not on file documented as of this encounter Plan of Treatment Not on file documented as of this encounter Visit Diagnoses Not on filedocumented in this encounter Care Teams Salesperson Yard Goods Relationship Specialty Start Date End Date Carlo Murphy MD [address] [place] [phone] PCP - General 01/05/05 11/03/22 documented as of this encounter
--- OUTSIDE RECORDS SUMMARY | 2025-03-20 08:34 | XMS_ITS | Encounter Summary ---
Author Organization [facility] Address [address] [place] [address] Care Team Providers Care Special Education Instructor Name Role Phone Carlo Murphy MD Primary Care Provider [phone] Encounter Details Date Type Department Care Team (Late st Contact Info) Description 09/03/2005 Outpatient Historical [facility] Internal Medicine - [facility] [address] [phone] Carlo Murphy MD [address] [place] [phone] Social History Tobacco Use Types Packs/Day Years Used Date Smoking Tobacco: Never Assessed Comments Unknown Sex and Gender Information Value Date Recorded Sex Assigned at Not on file Legal Sex Female 4:49 AM SUPPLIER SPECIALIST Gender Identity Not on file Sexual Orientation Not on file documented as of this encounter Plan of Treatment Not on file documented as of this encounter Visit Diagnoses Not on filedocumented in this encounter Care Teams Special Education Instructor Relationship Specialty Start Date End Date Carlo Murphy MD [address] [place] [phone] PCP - General 01/05/05 11/03/22 documented as of this encounter
--- OUTSIDE RECORDS SUMMARY | 2025-03-20 08:34 | XMS_ITS | Encounter Summary ---
Author Organization [employer] Address [address] [place] [address] Care Team Providers Care Distribution Coordinator Name Role Phone Carlo Murphy MD Primary Care Provider Encounter Details Date Type Department Care Team (Late st Contact Info) Description 11/03/2005 Outpatient Historical [facility] Eligio Goodwin MD [address] [place] [address] [place] [address] Other and Unspecified Noninfectious Gastroenteritis and Colitis (Primary Dx) Social History Tobacco Use Types Packs/Day Years Used Date Smoking Tobacco: Never Assessed Comments Unknown Sex and Gender Information Value Date Recorded Sex Assigned at Not on file Legal Sex Female 4:49 AM ARMOR RECONNAISSANCE SPECIALIST Gender Identity Not on file Sexual Orientation Not on file documented as of this encounter Plan of Treatment Not on file documented as of this encounter Visit Diagnoses Diagnosis Other and unspecified noninfectious gastroenteritis and colitis(558.9)- Primary Other and unspecified noninfectious gastroenteritis and colitis documented in this encounter Care Teams Distribution Coordinator Relationship Specialty Start Date End Date Carlo Murphy MD [address] [place] [phone] PCP - General 01/05/05 11/03/22 documented as of this encounter
--- OUTSIDE RECORDS SUMMARY | 2025-03-20 08:34 | XMS_ITS | Encounter Summary ---
Author Organization [facility] Address [address] [place] [address] Care Team Providers Care Procurement Intern Name Role Phone Carlo Murphy MD Primary Care Provider [phone] Encounter Details Date Type Department Care Team (Late st Contact Info) Description 07/20/2005 Outpatient Historical [facility] Internal Medicine - [facility] [address] [phone] Carlo Murphy MD [address] [place] [phone] Social History Tobacco Use Types Packs/Day Years Used Date Smoking Tobacco: Never Assessed Comments Unknown Sex and Gender Information Value Date Recorded Sex Assigned at Not on file Legal Sex Female 4:49 AM SENIOR BIOSTATISTICIAN Gender Identity Not on file Sexual Orientation Not on file documented as of this encounter Plan of Treatment Not on file documented as of this encounter Visit Diagnoses Not on filedocumented in this encounter Care Teams Procurement Intern Relationship Specialty Start Date End Date Carlo Murphy MD [address] [place] [phone] PCP - General 01/05/05 11/03/22 documented as of this encounter
--- OUTSIDE RECORDS SUMMARY | 2025-03-20 08:34 | XMS_ITS | Encounter Summary ---
Author Organization [facility] Address [address] [place] [address] Care Team Providers Care Motor Patrol Operator Name Role Phone Carlo Murphy MD Primary Care Provider [phone] Encounter Details Date Type Department Care Team (Late st Contact Info) Description 08/26/2004 Outpatient Historical [facility] Internal Medicine - [facility] [address] [phone] Nacho Kate Jr., MD NO ADDRESS ON FILE Social History Tobacco Use Types Packs/Day Years Used Date Smoking Tobacco: Never Assessed Comments Unknown Sex and Gender Information Value Date Recorded Sex Assigned at Not on file Legal Sex Female 4:49 AM RECRUITER Gender Identity Not on file Sexual Orientation Not on file documented as of this encounter Plan of Treatment Not on file documented as of this encounter Visit Diagnoses Not on filedocumented in this encounter Care Teams Motor Patrol Operator Relationship Specialty Start Date End Date Carlo Murphy MD [address] [place] [phone] PCP - General 01/05/05 11/03/22 documented as of this encounter
--- OUTSIDE RECORDS SUMMARY | 2025-03-20 08:34 | XMS_ITS | Encounter Summary ---
Author Organization [facility] Address [address] [place] [address] Care Team Providers Care Medical Coder Name Role Phone Carlo Murphy MD Primary Care Provider [phone] Encounter Details Date Type Department Care Team (Late st Contact Info) Description 10/21/2006 Outpatient Historical [facility] Internal Medicine - [facility] [address] [phone] Carlo Murhpy MD [address] [place] [phone] Social History Tobacco Use Types Packs/Day Years Used Date Smoking Tobacco: Never Assessed Comments Unknown Sex and Gender Information Value Date Recorded Sex Assigned at Not on file Legal Sex Female 4:49 AM MISSILE TECHNICIAN Gender Identity Not on file Sexual Orientation Not on file documented as of this encounter Plan of Treatment Not on file documented as of this encounter Visit Diagnoses Not on filedocumented in this encounter Care Teams Medical Coder Relationship Specialty Start Date End Date Carlo Murphy MD [address] [place] [phone] PCP - General 01/05/05 11/03/22 documented as of this encounter
--- OUTSIDE RECORDS SUMMARY | 2025-03-20 08:34 | XMS_ITS | Encounter Summary ---
Author Organization [facility] Address [address] [place] [address] Care Team Providers Care Aids Counselor Name Role Phone Carlo Murphy MD Primary Care Provider [phone] Encounter Details Date Type Department Care Team (Late st Contact Info) Description 11/23/2005 Outpatient Historical [facility] Internal Medicine - [facility] [address] [phone] Carlo Murphy MD [address] [place] [phone] Social History Tobacco Use Types Packs/Day Years Used Date Smoking Tobacco: Never Assessed Comments Unknown Sex and Gender Information Value Date Recorded Sex Assigned at Not on file Legal Sex Female 4:49 AM SCRUBBING MACHINE OPERATOR Gender Identity Not on file Sexual Orientation Not on file documented as of this encounter Plan of Treatment Not on file documented as of this encounter Visit Diagnoses Not on filedocumented in this encounter Care Teams Aids Counselor Relationship Specialty Start Date End Date Carlo Murphy MD [address] [place] [phone] PCP - General 01/05/05 11/03/22 documented as of this encounter
--- OUTSIDE RECORDS SUMMARY | 2025-03-20 08:34 | XMS_ITS | Encounter Summary ---
Author Organization [facility] Address [address] [place] [address] Care Team Providers Care Health Information Administrator Name Role Phone Carlo Murphy MD Primary Care Provider [phone] Encounter Details Date Type Department Care Team (Late st Contact Info) Description 11/24/2004 Outpatient Historical [facility] Internal Medicine - [facility] [address] [phone] Carlo Murphy MD [address] [place] [phone] Social History Tobacco Use Types Packs/Day Years Used Date Smoking Tobacco: Never Assessed Comments Unknown Sex and Gender Information Value Date Recorded Sex Assigned at Not on file Legal Sex Female 4:49 AM EDI ARCHITECT Gender Identity Not on file Sexual Orientation Not on file documented as of this encounter Plan of Treatment Not on file documented as of this encounter Visit Diagnoses Not on filedocumented in this encounter Care Teams Health Information Administrator Relationship Specialty Start Date End Date Carlo Murphy MD [address] [place] [phone] PCP - General 01/05/05 11/03/22 documented as of this encounter
--- OUTSIDE RECORDS SUMMARY | 2025-03-20 08:34 | XMS_ITS | Encounter Summary ---
Author Organization [facility] Address [address] [place] [address] Care Team Providers Care Liquid Hydrogen Plant Operator Name Role Phone Carlo Murphy MD Primary Care Provider [phone] Encounter Details Date Type Department Care Team (Late st Contact Info) Description 10/01/2005 Outpatient Historical [facility] Internal Medicine - [facility] [address] [phone] Carlo Murphy MD [address] [place] [phone] Social History Tobacco Use Types Packs/Day Years Used Date Smoking Tobacco: Never Assessed Comments Unknown Sex and Gender Information Value Date Recorded Sex Assigned at Not on file Legal Sex Female 4:49 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
--- OUTSIDE RECORDS SUMMARY | 2025-03-20 08:34 | XMS_ITS | Encounter Summary ---
Author Organization [facility] Address [address] [place] [address] Care Team Providers Care Talent Acquisition Program Manager Name Role Phone Carlo Murphy MD Primary Care Provider [phone] Encounter Details Date Type Department Care Team (Late st Contact Info) Description 08/24/2006 Outpatient Historical [facility] Eligio Goodwin MD [address] [place] [address] [place] [phone] Reflux Esophagitis (Primary Dx) Social History Tobacco Use Types Packs/Day Years Used Date Smoking Tobacco: Never Assessed Comments Unknown Sex and Gender Information Value Date Recorded Sex Assigned at Not on file Legal Sex Female 4:[address] SCAN TECHNOLOGIST Gender Identity Not on file Sexual Orientation Not on file documented as of this encounter Plan of Treatment Not on file documented as of this encounter Visit Diagnoses Diagnosis Reflux esophagitis- Primary documented in this encounter Care Teams Talent Acquisition Program Manager Relationship Specialty Start Date End Date Carlo Murphy MD [address] [place] [address] [address] [place] [phone] PCP - General 01/05/05 11/03/22 documented as of this encounter
--- OUTSIDE RECORDS SUMMARY | 2025-03-20 08:34 | XMS_ITS | Encounter Summary ---
Author Organization [facility] Address [address] [place] [address] Care Team Providers Care Assistant Prosecuting Attorney Name Role Phone Carlo Murphy MD Primary Care Provider [phone] Encounter Details Date Type Department Care Team (Late st Contact Info) Description 03/31/2004 Outpatient Historical [facility] Internal Medicine - 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
--- OUTSIDE RECORDS SUMMARY | 2025-03-20 08:34 | XMS_ITS | Encounter Summary ---
Author Organization [facility] Address [address] [place] [address] Care Team Providers Care Automotive Parts Coordinator Name Role Phone Carlo Murphy MD Primary Care Provider [phone] Encounter Details Date Type Department Care Team (Late st Contact Info) Description 05/16/2002 Outpatient Historical [facility] Internal Medicine - [facility] [address] [phone] Carlo Murphy MD [address] [place] [phone] Social History Tobacco Use Types Packs/Day Years Used Date Smoking Tobacco: Never Assessed Comments Unknown Sex and Gender Information Value Date Recorded Sex Assigned at Not on file 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
--- OUTSIDE RECORDS SUMMARY | 2025-03-20 08:34 | XMS_ITS | Encounter Summary ---
Author Organization [facility] Address [address] [place] [address] Care Team Providers Care Channeler Insole Name Role Phone Carlo Murphy MD Primary Care Provider [phone] Encounter Details Date Type Department Care Team (Late st Contact Info) Description 08/13/2004 Outpatient Historical [facility] Internal Medicine - [facility] [address] [phone] Nacho Kate Jr., MD NO ADDRESS ON FILE Social History Tobacco Use Types Packs/Day Years Used Date Smoking Tobacco: Never Assessed Comments Unknown Sex and Gender Information Value Date Recorded Sex Assigned at Not on file 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
--- OUTSIDE RECORDS SUMMARY | 2025-03-20 08:34 | XMS_ITS | Encounter Summary ---
Author Organization [facility] Address [address] [place] [address] Care Team Providers Care Cardiac Monitor Name Role Phone Carlo Murphy MD Primary Care Provider [phone] Encounter Details Date Type Department Care Team (Late st Contact Info) Description 01/26/2006 Outpatient Historical [facility] Internal Medicine - [facility] [address] [phone] Carlo Murphy MD [address] [place] [phone] Social History Tobacco Use Types Packs/Day Years Used Date Smoking Tobacco: Never Assessed Comments Unknown Sex and Gender Information Value Date Recorded Sex Assigned at Not on file 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
--- OUTSIDE RECORDS SUMMARY | 2025-03-20 08:34 | XMS_ITS | Encounter Summary ---
Author Organization [facility] Address [address] [place] [address] Care Team Providers Care Big Data Platform Architect Name Role Phone Carlo Murphy MD Primary Care Provider [phone] Encounter Details Date Type Department Care Team (Late st Contact Info) Description 12/25/[address] 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
--- OUTSIDE RECORDS SUMMARY | 2025-03-20 08:34 | XMS_ITS | Encounter Summary ---
Author Organization [facility] Address [address] [place] [address] Care Team Providers Care Pathology Laboratory Director Name Role Phone Carlo Murphy MD Primary Care Provider [phone] Encounter Details Date Type Department Care Team (Late st Contact Info) Description 05/24/2006 Outpatient Historical [facility] Internal Medicine - [facility] [address] [phone] Carlo Murphy MD [address] [place] [phone] Social History Tobacco Use Types Packs/Day Years Used Date Smoking Tobacco: Never Assessed Comments Unknown Sex and Gender Information Value Date Recorded Sex Assigned at Not on file Legal Sex Female 4:49 AM TRY ON BASTER Gender Identity Not on file Sexual Orientation Not on file documented as of this encounter Plan of Treatment Not on file documented as of this encounter Visit Diagnoses Not on filedocumented in this encounter Care Teams Pathology Laboratory Director Relationship Specialty Start Date End Date Carlo Murphy MD [address] [place] [phone] PCP - General 01/05/05 11/03/22 documented as of this encounter
--- OUTSIDE RECORDS SUMMARY | 2025-03-20 08:34 | XMS_ITS | Encounter Summary ---
Author Organization [facility] Address [address] [place] [address] Care Team Providers Care Factory Assembler Name Role Phone Carlo Murphy MD Primary Care Provider [phone] Encounter Details Date Type Department Care Team (Late st Contact Info) Description 05/11/2002 Outpatient Historical [facility] Internal Medicine - [facility] [address] [phone] Nacho Kate Jr., MD NO ADDRESS ON FILE Social History Tobacco Use Types Packs/Day Years Used Date Smoking Tobacco: Never Assessed Comments Unknown Sex and Gender Information Value Date Recorded Sex Assigned at Not on file 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
--- OUTSIDE RECORDS SUMMARY | 2025-03-20 08:34 | XMS_ITS | Encounter Summary ---
Author Organization [facility] Address [address] [place] [address] Care Team Providers Care Industrial Rehabilitation Consultant Name Role Phone Carlo Murphy MD Primary Care Provider [phone] Encounter Details Date Type Department Care Team (Late st Contact Info) Description 11/21/2001 Outpatient Historical [facility] Internal Medicine - [facility] [address] [phone] Carlo Murphy MD [address] [place] [phone] Social History Tobacco Use Types Packs/Day Years Used Date Smoking Tobacco: Never Assessed Comments Unknown Sex and Gender Information Value Date Recorded Sex Assigned at Not on file 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
--- OUTSIDE RECORDS SUMMARY | 2025-03-20 08:34 | XMS_ITS | Encounter Summary ---
Author Organization [facility] Address [address] [place] [address] Care Team Providers Care Pipe Line Maintenance Supervisor Name Role Phone Carlo Murphy MD Primary Care Provider [phone] Encounter Details Date Type Department Care Team (Late st Contact Info) Description 01/05/2005 Outpatient Historical [facility] Carlo Feliz MD [address] [facility] [place] [phone] BENIGN NAHUM LIVER/BILE DUCTS (Primary Dx) Social History Tobacco Use Types Packs/Day Years Used Date Smoking Tobacco: Never Assessed Comments Unknown Sex and Gender Information Value Date Recorded Sex Assigned at Not on file Legal Sex Female 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
--- OUTSIDE RECORDS SUMMARY | 2025-03-20 08:34 | XMS_ITS | Encounter Summary ---
Author Organization [facility] Address [address] [place] [address] Care Team Providers Care Photographic Reproduction Technician Name Role Phone Carlo Murphy MD Primary Care Provider [phone] Encounter Details Date Type Department Care Team (Late st Contact Info) Description 11/07/2001 Outpatient Historical [facility] Internal Medicine - [facility] [address] [phone] Carlo Murphy MD [address] [place] [phone] Social History Tobacco Use Types Packs/Day Years Used Date Smoking Tobacco: Never Assessed Comments Unknown Sex and Gender Information Value Date Recorded Sex Assigned at Not on file 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
--- OUTSIDE RECORDS SUMMARY | 2025-03-20 08:34 | XMS_ITS | Encounter Summary ---
Author Organization [facility] Address [address] [place] [address] Care Team Providers Care Od Grinder Operator Name Role Phone Carlo Murphy MD Primary Care Provider [phone] Encounter Details Date Type Department Care Team (Late st Contact Info) Description 12/19/2001 Outpatient Historical [facility] Internal Medicine - [facility] [address] [phone] Carlo Murphy MD [address] [place] [phone] Social History Tobacco Use Types Packs/Day Years Used Date Smoking Tobacco: Never Assessed Comments Unknown Sex and Gender Information Value Date Recorded Sex Assigned at Not on file Legal Sex Female 4:49 AM 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
[2025-03-20 09:09] LABS: Hematocrit 40.7 % (37.0-47.0); Hemoglobin 12.7 g/dL (12.0-15.0); Mean Corpuscular HGB Conc 31.2 g/dl (32-36); Mean Corpuscular Hemoglobin 29.2 pg (26-34); Mean Corpuscular Volume 93.6 fl (80-100); Platelet Count Result 287 k/mm3 (150-375); Red Blood Count 4.35 M/mm3 (4.2-5.4); White Blood Count 6.8 K/mm3 (4.5-10.0)
[2025-03-20 09:31] LABS: Alanine Aminotransferase 37 U/L (6-35); Albumin Level 4.0 g/dL (3.5-5.1); Alkaline Phosphatase 60 U/L (38-126); Anion Gap 8 mmol/L (4-12); Aspartate Amino Transferase 69 U/L (14-36); Bilirubin,Total 0.8 mg/dL (0.2-1.3); Blood Urea Nitrogen 24 mg/dL (7-17); Calcium 9.3 mg/dL (8.4-10.2); Carbon Dioxide 23 mmol/L (22-30); Chloride 111 mmol/L (98-107); Cholesterol 210 mg/dL (0-200); Estimated Glomerular Filt Rate 51; Glucose 94 mg/dL (65-110); HDL Direct 47 mg/dL; Iron 73 ug/dL (37-170); Magnesium 2.1 mg/dL (1.6-2.3); Potassium 4.6 mmol/L (3.4-5.0); Sodium 142 mmol/L (137-145); Total Protein 8.6 g/dL (6.3-8.2); Triglycerides 142 mg/dL (<150)
[2025-03-20 09:45] LABS: Percent Iron Saturation 27 % (20-50)
[2025-03-20 10:38] LABS: Thyroid Stimulating Hormone 2.500 uIU/mL (0.465-4.680)
[2025-03-20 10:57] LABS: Vitamin B12 327.0 pg/mL (239-931)
== END 2025-03-20 08:16 | disposition home or self-care (01) ==
PROVIDERS: PCP Family Medicine; Visit Provider Nurse Practitioner Family
DX: D64.9 Anemia, unspecified (principal); I10 Essential (primary) hypertension; R53.83 Other fatigue; F41.9 Anxiety disorder, unspecified; I82.409 Acute embolism and thrombosis of unspecified deep veins of unspecified lower extremity; E55.9 Vitamin D deficiency, unspecified
CPT/HCPCS: 36415; 80053; 80061; 82306; 82607; 83540; 83550; 83735; 84443; 85027

== ENCOUNTER 2025-04-23 09:04 | Outpatient (CLI) | payer MEDICARE, SELFPAY ==
--- OUTSIDE RECORDS SUMMARY | 2000-01-13 10:00 | XMS_ITS | Continuity of Care Document ---
Author Organization [facility] Address [address] [place] [address] [address] [place] [address] Phone Care Team Providers Care Customer Service Advocate Name Role Phone Izabela Russo Unavailable Unavailable Advance Directives Directive Yes / No Effective Date File Name No Information Encounters Encounter Description Practice Location Reason(s) For Visit Diagnoses Date Provider Providers Copied on Encounter [facility], [address], [place], [place], [id number], [place] tel:[phone] [facility] [place] No Information Dec- 3-200 0 Rafaela Gurrola. [address] [facility] , [address], [place], [address], [place]. tel:[phone] Family History Family Member Type Diagnosis Age At Onset No Information Payers Payer name Insurance type Covered constitution party ID Authoriza tion(s) No Information Social History Type Description Quantity Date Captured Comments Sex Female Smoking Status No Information Chief Complaint And Reason For Visit No Information Reason For Referral Reason For Referral No Information History Of Present Illness Encounter Date Complaint History Of Prese nt Illness No Information Functional Status Date Functional Assessmen t No Information Instructions Date Instruction Additional Infor mation No Information Assessments Type Assessment Date No Information Patient Care Teams Name Effective Dates (start - stop) Status Members No Information
--- OUTSIDE RECORDS SUMMARY | 2025-04-23 09:51 | XMS_ITS | Encounter Summary ---
Author Organization [facility] Address [address] [place] [address] Care Team Providers Care Postpartum Rn Name Role Phone Carlo Murphy MD Primary Care Provider [phone] Encounter Details Date Type Department Care Team (Late st Contact Info) Description 06/20/2007 Outpatient Historical [facility] Internal Medicine - [facility] [address] [phone] Carlo Murphy MD [address] [place] [phone] Social History Tobacco Use Types Packs/Day Years Used Date Smoking Tobacco: Never Assessed Comments Unknown Sex and Gender Information Value Date Recorded Sex Assigned at Not on file Legal Sex Female 4:49 AM PASTEURIZING SUPERVISOR Gender Identity Not on file Sexual Orientation Not on file documented as of this encounter Plan of Treatment Not on file documented as of this encounter Visit Diagnoses Not on filedocumented in this encounter Care Teams Postpartum Rn Relationship Specialty Start Date End Date Carlo Murphy MD [address] [place] [phone] PCP - General 01/05/05 11/03/22 documented as of this encounter
--- OUTSIDE RECORDS SUMMARY | 2025-04-23 09:51 | XMS_ITS | Encounter Summary ---
Author Organization [facility] Address [address] [place] [address] Care Team Providers Care Mental Health Specialist Name Role Phone Carlo Murphy MD Primary Care Provider [phone] Encounter Details Date Type Department Care Team (Late st Contact Info) Description 11/05/[address] [facility] Internal Medicine - [facility] [address] [phone] Carlo Murphy MD [address] [place] [phone] Social History Tobacco Use Types Packs/Day Years Used Date Smoking Tobacco: Never Assessed Comments Unknown Sex and Gender Information Value Date Recorded Sex Assigned at Not on file Legal Sex Female 4:49 AM DIE SETTER Gender Identity Not on file Sexual Orientation Not on file documented as of this encounter Plan of Treatment Not on file documented as of this encounter Visit Diagnoses Not on filedocumented in this encounter Care Teams Mental Health Specialist Relationship Specialty Start Date End Date Carlo Murphy MD [address] [place] [phone] PCP - General 01/05/05 11/03/22 documented as of this encounter
--- OUTSIDE RECORDS SUMMARY | 2025-04-23 09:51 | XMS_ITS | Clinical Summary ---
Author Organization [facility] Address [address] [place] [address] Care Team Providers Care Photographer News Name Role Phone Unknown, Provider Primary Care Provider Unavaila ble Source Comments [facility],non-owned Affiliates and Associated Physician Practices is amultiple site organization consisting of ambulatory clinics and hospital sitesin [place], [place], [place] and [place]. This disclosure is being madepursuant to the Care Everywhere program and may not contain all information available regarding this patient. Last updated 18.[facility] Allergies Active Allergy Reactions Criticality Noted Date [...] yrs (1 - 1-dose 75+ series) 2014 DEPRESSION SCREENING 08/02/2024 COVID-19 VACCINE (1 - season) 2025 INFLUENZA VACCINE (#1) 2025 9, 05/04/2018, 06/04/2017, [...] age to complete this topic Insurance MEDICARE [facility] Care Teams Photographer News Relationship Specialty Start Date End Date Unknown, Provider PCP - General 05/07/19
--- OUTSIDE RECORDS SUMMARY | 2025-04-23 09:51 | XMS_ITS | Encounter Summary ---
Author Organization [facility] Address [address] [place] [address] Care Team Providers Care Artificial Insemination Technician Name Role Phone Carlo Murphy MD Primary Care Provider [phone] Encounter Details Date Type Department Care Team (Late st Contact Info) Description 01/27/2007 Outpatient Historical [facility] Internal Medicine - [facility] [address] [phone] Carlo Murphy MD [address] [place] [phone] Social History Tobacco Use Types Packs/Day Years Used Date Smoking Tobacco: Never Assessed Comments Unknown Sex and Gender Information Value Date Recorded Sex Assigned at Not on file Legal Sex Female 4:49 AM 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
--- OUTSIDE RECORDS SUMMARY | 2025-04-23 09:51 | XMS_ITS | Encounter Summary ---
Author Organization [facility] Address [address] [place] [address] Care Team Providers Care Upholstery Repairer Name Role Phone Carlo Murphy MD Primary Care Provider [phone] Encounter Details Date Type Department Care Team (Late st Contact Info) Description 06/08/2005 Outpatient Historical [facility] Internal Medicine - [facility] [address] [phone] Carlo Murphy MD [address] [place] [phone] Social History Tobacco Use Types Packs/Day Years Used Date Smoking Tobacco: Never Assessed Comments Unknown Sex and Gender Information Value Date Recorded Sex Assigned at Not on file Legal Sex Female 4:49 AM TREAD CUTTER Gender Identity Not on file Sexual Orientation Not on file documented as of this encounter Plan of Treatment Not on file documented as of this encounter Visit Diagnoses Not on filedocumented in this encounter Care Teams Upholstery Repairer Relationship Specialty Start Date End Date Carlo Murphy MD [address] [place] [phone] PCP - General 01/05/05 11/03/22 documented as of this encounter
--- OUTSIDE RECORDS SUMMARY | 2025-04-23 09:51 | XMS_ITS | Encounter Summary ---
Author Organization [facility] Address [address] [place] [address] Care Team Providers Care County Director Welfare Name Role Phone Carlo Murphy MD Primary Care Provider [phone] Encounter Details Date Type Department Care Team (Late st Contact Info) Description 04/13/2005 Outpatient Historical [facility] [address] [phone] Carlo Murphy MD [address] [place] [phone] Social History Tobacco Use Types Packs/Day Years Used Date Smoking Tobacco: Never Assessed Comments Unknown Sex and Gender Information Value Date Recorded Sex Assigned at Not on file Legal Sex Female 4:49 AM AFTER SCHOOL PROGRAM COORDINATOR Gender Identity Not on file Sexual Orientation Not on file documented as of this encounter Plan of Treatment Not on file documented as of this encounter Visit Diagnoses Not on filedocumented in this encounter Care Teams County Director Welfare Relationship Specialty Start Date End Date Carlo Murphy MD [address] [place] [phone] PCP - General 01/05/05 11/03/22 documented as of this encounter
--- OUTSIDE RECORDS SUMMARY | 2025-04-23 09:51 | XMS_ITS | Encounter Summary ---
Author Organization [employer] Address [address] [place] [address] Care Team Providers Care Aquaculture Farmer Name Role Phone Carlo Murphy MD Primary Care Provider [phone] Encounter Details Date Type Department Care Team (Late st Contact Info) Description 01/13/[address] [facility] [address] 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
--- OUTSIDE RECORDS SUMMARY | 2025-04-23 09:51 | XMS_ITS | Encounter Summary ---
Author Organization [facility] Address [address] [place] [address] Care Team Providers Care Piano Case And Bench Assembler Name Role Phone Carlo Murphy MD Primary Care Provider [phone] Encounter Details Date Type Department Care Team (Late st Contact Info) Description 04/11/[address] [facility] Internal Medicine - [facility] [address] [phone] Carlo Murphy MD [address] [place] [phone] Social History Tobacco Use Types Packs/Day Years Used Date Smoking Tobacco: Never Assessed Comments Unknown Sex and Gender Information Value Date Recorded Sex Assigned at Not on file Legal Sex Female 4:49 AM CANDY MAKER Gender Identity Not on file Sexual Orientation Not on file documented as of this encounter Plan of Treatment Not on file documented as of this encounter Visit Diagnoses Not on filedocumented in this encounter Care Teams Piano Case And Bench Assembler Relationship Specialty Start Date End Date Carlo Murphy MD [address] [place] [phone] PCP - General 01/05/05 11/03/22 documented as of this encounter
--- OUTSIDE RECORDS SUMMARY | 2025-04-23 09:51 | XMS_ITS | Clinical Summary ---
Author Organization [facility] Address [address] [place] [address] Care Team Providers Care Crop Setting Out Machine Operator Name Role Phone Unavailable Primary Care Provider [...] drink = 0.6 oz p ure alcohol) Social Connections Answer Date Recorded In a typical week, how many times do you talk on the phone with family, friends, or neighbors? More than three times a week 06/18/2020 How often do you get togethe r with friends or relatives? Three times a week 06/18/2020 How often do you attend chur ch or jew services? More than 4 times per year 06/18/2020 Do you belong to any clubs o r organizations such as uatsdin groups, unions, fraternal or athletic groups, or school groups? No 06/18/2020 How often do you attend meet ings of the clubs or organizations you belong to? 1 to 4 times per year 06/18/2020 Marital Status Not on file 06/18/2020 Financial Resource Strain Answer Date R ecorded How hard is it for you to pa y for the very basics like food, housing, medical care, and heating? Not hard at all 09/07/2022 Food Insecurity Answer Date Recorded In the past 12 months, have you worried that your food would run out before you had money to buy more? Never true 09/07/2022 In the past 12 months, did y ou run out of food and didn't have money to buy more? Never true 09/07/2022 Transportation Needs Answer Date Record ed In the past 12 months, has l ack of transportation kept you from medical appointments or from getting medications? No 09/07/2022 Lack of Transportation (Non-Medical) Not on file 09/07/2022 Education Answer Date Recorded What is the highest level of school you have completed or the highest degree you have received? 12th grade 06/18/2020 Comments No Sex and Gender Information Value Date Recorded Sex Assigned at Not on file Legal Sex Female 4:49 AM QUAL RESEARCH MANAGER Gender Identity Not on file Sexual Orientation Not on file Occupation Industry Job Start Date Job End Date Not on file Not on file Not on file Not on file Not on file Not on file Not on file Not on file Last Filed Vital Signs Vital Sign Reading Time Taken Comments Blood Pressure 128/80 09/07/2022 2:37 PM QUAL RESEARCH MANAGER Pulse 68 09/07/2022 2:37 PM QUAL RESEARCH MANAGER Temperature 36.6 C (97.8 F) 09/07/2022 2:37 PM QUAL RESEARCH MANAGER Respiratory Rate 16 09/07/2022 2:37 PM QUAL RESEARCH MANAGER Oxygen Saturation 96% 07/17/2014 7:57 AM QUAL RESEARCH MANAGER Inhaled Oxygen Concentration - - Weight 60.4 kg (133 lb 3.2 oz) 09/07/2022 2:37 P M QUAL RESEARCH MANAGER Height 157.5 cm (5' 2) 09/07/2022 2:37 PM QUAL RESEARCH MANAGER Body Mass Index 24.36 09/07/2022 2:37 PM QUAL RESEARCH MANAGER Plan of Treatment Health Maintenance Due Date Last Done Comments DTAP/TDAP/TD VACCINES (1 - Tdap) 1959 RSV VACCINE (60+ or ) (1 - 1-dose 75+ series) 2014 OSTEOPOROSIS SCREENING 02/11/2015 02/11/2010 INFLUENZA VACCINE (#1) 2025 2, 05/16/2021, 06/17/2020, Additional history exists COVID-19 Vaccine (5 2024- 6 season) 2025 06/09/2022, 06/02/2021, 10/25/2020, Additional history exists COLORECTAL SCREENING Discontinued 03/20/2014, 03/20/2014, 10/31/2005 Colorectal Cancer Screening Discontinued PNEUMOCOCCAL VACCINE 50+ YEARS Completed 0 09/15/2016, 08/13/2015, 05/02/2005 ZOSTER VACCINE Completed 09/02/2019, 07/02, 06/02/2009 FIT-DNA Q 3 years Discontinued FIT/FOBT Q 1 year Discontinued Flex Sig/CT Colonography Q 5 years Discontinued Insurance MEDICARE PART A AND B [facility] Advance Directives For more information, please contact: [phone] * Full Code (Latest Code Status on File) Date Activated Date Inactivated Comments 07/17/2014 7:05 AM 07/17/2014 10:11 AM * Full Code Date Activated Date Inactivated Comments 03/20/2014 7:40 AM 03/20/2014 11:20 AM
--- OUTSIDE RECORDS SUMMARY | 2025-04-23 09:52 | XMS_ITS | Encounter Summary ---
Author Organization [facility] Address [address] [place] [address] Care Team Providers Care Adult Services Librarian Name Role Phone Carlo Murphy MD Primary Care Provider [phone] Encounter Details Date Type Department Care Team (Late st Contact Info) Description 05/16/2002 Outpatient Historical [facility] Internal Medicine - [facility] [address] [phone] Carlo Murphy MD [address] [place] [phone] Social History Tobacco Use Types Packs/Day Years Used Date Smoking Tobacco: Never Assessed Comments Unknown Sex and Gender Information Value Date Recorded Sex Assigned at Not on file Legal Sex Female 4:49 AM STATION JAILER Gender Identity Not on file Sexual Orientation Not on file documented as of this encounter Plan of Treatment Not on file documented as of this encounter Visit Diagnoses Not on filedocumented in this encounter Care Teams Adult Services Librarian Relationship Specialty Start Date End Date Carlo Murphy MD [address] [place] [phone] PCP - General 01/05/05 11/03/22 documented as of this encounter
--- OUTSIDE RECORDS SUMMARY | 2025-04-23 09:52 | XMS_ITS | Encounter Summary ---
Author Organization [employer] Address [address] [place] [address] Care Team Providers Care Seismic Computer Name Role Phone Carlo Murphy MD Primary Care Provider [phone] Encounter Details Date Type Department Care Team (Late st Contact Info) Description 11/03/2005 Outpatient Historical [facility] Eligio Goodwin MD [address] [place] [address] [place] [address] Other and Unspecified Noninfectious Gastroenteritis and Colitis (Primary Dx) Social History Tobacco Use Types Packs/Day Years Used Date Smoking Tobacco: Never Assessed Comments Unknown Sex and Gender Information Value Date Recorded Sex Assigned at Not on file Legal Sex Female 4:49 AM SOCCER COACH Gender Identity Not on file Sexual Orientation Not on file documented as of this encounter Plan of Treatment Not on file documented as of this encounter Visit Diagnoses Diagnosis Other and unspecified noninfectious gastroenteritis and colitis(558.9)- Primary Other and unspecified noninfectious gastroenteritis and colitis documented in this encounter Care Teams Seismic Computer Relationship Specialty Start Date End Date Carlo Murphy MD [address] [place] [phone] PCP - General 01/05/05 11/03/22 documented as of this encounter
--- OUTSIDE RECORDS SUMMARY | 2025-04-23 09:52 | XMS_ITS | Encounter Summary ---
Author Organization [employer] Address [address] [place] [address] Care Team Providers Care Import/Export Freight Forwarder Name Role Phone Carlo Murphy MD Primary Care Provider [phone] Encounter Details Date Type Department Care Team (Late st Contact Info) Description 01/05/2005 Outpatient Historical [facility] Carlo Feliz MD [address] [facility] [place] [phone] BENIGN NAHUM LIVER/BILE DUCTS (Primary Dx) Social History Tobacco Use Types Packs/Day Years Used Date Smoking Tobacco: Never Assessed Comments Unknown Sex and Gender Information Value Date Recorded Sex Assigned at Not on file Legal Sex Female 4:49 AM OCCUPATIONAL HYGIENIST Gender Identity Not on file Sexual Orientation Not on file documented as of this encounter Plan of Treatment Not on file documented as of this encounter Visit Diagnoses Diagnosis 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
--- OUTSIDE RECORDS SUMMARY | 2025-04-23 09:52 | XMS_ITS | Encounter Summary ---
Author Organization [facility] Address [address] [place] [address] Care Team Providers Care Cytogeneticist Name Role Phone Carlo Murphy MD Primary Care Provider [phone] Encounter Details Date Type Department Care Team (Late st Contact Info) Description 12/25/2004 Outpatient Historical [facility] Internal Medicine - [facility] [address] [phone] Carlo Murphy MD [address] [place] [phone] Social History Tobacco Use Types Packs/Day Years Used Date Smoking Tobacco: Never Assessed Comments Unknown Sex and Gender Information Value Date Recorded Sex Assigned at Not on file Legal Sex Female 4:49 AM A AUXILIARY Gender Identity Not on file Sexual Orientation Not on file documented as of this encounter Plan of Treatment Not on file documented as of this encounter Visit Diagnoses Not on filedocumented in this encounter Care Teams Cytogeneticist Relationship Specialty Start Date End Date Carlo Murphy MD [address] [place] [phone] PCP - General 01/05/05 11/03/22 documented as of this encounter
--- OUTSIDE RECORDS SUMMARY | 2025-04-23 09:52 | XMS_ITS | Encounter Summary ---
Author Organization [facility] Address [address] [place] [address] Care Team Providers Care Form Grader Name Role Phone Carlo Murphy MD Primary Care Provider [phone] Encounter Details Date Type Department Care Team (Late st Contact Info) Description 12/22/2005 Outpatient Historical [facility] Internal Medicine - [facility] [address] [phone] Carlo Murphy MD [address] [place] [phone] Social History Tobacco Use Types Packs/Day Years Used Date Smoking Tobacco: Never Assessed Comments Unknown Sex and Gender Information Value Date Recorded Sex Assigned at Not on file Legal Sex Female 4:49 AM AIR BAG STRIPPER Gender Identity Not on file Sexual Orientation Not on file documented as of this encounter Plan of Treatment Not on file documented as of this encounter Visit Diagnoses Not on filedocumented in this encounter Care Teams Form Grader Relationship Specialty Start Date End Date Carlo Murphy MD [address] [place] [phone] PCP - General 01/05/05 11/03/22 documented as of this encounter
--- OUTSIDE RECORDS SUMMARY | 2025-04-23 09:52 | XMS_ITS | Encounter Summary ---
Author Organization [facility] Address [address] [place] [address] Care Team Providers Care Flight Radio Operator Name Role Phone Carlo Murphy MD Primary Care Provider [phone] Encounter Details Date Type Department Care Team (Late st Contact Info) Description 07/20/2005 Outpatient Historical [facility] Internal Medicine - [facility] [address] [phone] Carlo Murphy MD [address] [place] [phone] Social History Tobacco Use Types Packs/Day Years Used Date Smoking Tobacco: Never Assessed Comments Unknown Sex and Gender Information Value Date Recorded Sex Assigned at Not on file Legal Sex Female 4:49 AM ELECTROENCEPHALOGRAPH TECHNOLOGIST Gender Identity Not on file Sexual Orientation Not on file documented as of this encounter Plan of Treatment Not on file documented as of this encounter Visit Diagnoses Not on filedocumented in this encounter Care Teams Flight Radio Operator Relationship Specialty Start Date End Date Carlo Murphy MD [address] [place] [phone] PCP - General 01/05/05 11/03/22 documented as of this encounter
--- OUTSIDE RECORDS SUMMARY | 2025-04-23 09:52 | XMS_ITS | Encounter Summary ---
Author Organization [email or web address] Address [address] [place] [address] Care Team Providers Care Forest Engineer Name Role Phone Carlo Murphy MD Primary Care Provider [phone] Encounter Details Date Type Department Care Team (Late st Contact Info) Description 09/07/2005 Outpatient Historical [facility] [address] [facility] [address] [place] [address] Efraín Rubio MD [address] [place] [address] Social History Tobacco Use Types Packs/Day Years Used Date Smoking Tobacco: Never Assessed Comments Unknown Sex and Gender Information Value Date Recorded Sex Assigned at Not on file Legal Sex Female 4:49 AM BOX HINGE AND LOCK ATTACHER Gender Identity Not on file Sexual Orientation Not on file documented as of this encounter Plan of Treatment Not on file documented as of this encounter Visit Diagnoses Not on filedocumented in this encounter Care Teams Forest Engineer Relationship Specialty Start Date End Date Carlo Murphy MD [address] [place] [phone] PCP - General 01/05/05 11/03/22 documented as of this encounter
--- OUTSIDE RECORDS SUMMARY | 2025-04-23 09:52 | XMS_ITS | Encounter Summary ---
Author Organization [facility] Address [address] [place] [address] Care Team Providers Care Heel Nail Rasper Name Role Phone Carlo Murphy MD Primary Care Provider [phone] Encounter Details Date Type Department Care Team (Late st Contact Info) Description 10/21/2006 Outpatient Historical [facility] Internal Medicine - [facility] [address] [phone] Carlo Murphy MD [address] [place] [phone] Social History Tobacco Use Types Packs/Day Years Used Date Smoking Tobacco: Never Assessed Comments Unknown Sex and Gender Information Value Date Recorded Sex Assigned at Not on file Legal Sex Female 4:49 AM DENSITY CONTROL PUNCHER Gender Identity Not on file Sexual Orientation Not on file documented as of this encounter Plan of Treatment Not on file documented as of this encounter Visit Diagnoses Not on filedocumented in this encounter Care Teams Heel Nail Rasper Relationship Specialty Start Date End Date Carlo Murphy MD [address] [place] [phone] PCP - General 01/05/05 11/03/22 documented as of this encounter
--- OUTSIDE RECORDS SUMMARY | 2025-04-23 09:52 | XMS_ITS | Encounter Summary ---
Author Organization [facility] Address [address] [place] [address] Care Team Providers Care Vc++ Developer Name Role Phone Carlo Murphy MD Primary Care Provider [phone] Encounter Details Date Type Department Care Team (Late st Contact Info) Description 05/11/2002 Outpatient Historical [facility] Internal Medicine - [facility] [address] [phone] Nacho Kate Jr., MD NO ADDRESS ON FILE Social History Tobacco Use Types Packs/Day Years Used Date Smoking Tobacco: Never Assessed Comments Unknown Sex and Gender Information Value Date Recorded Sex Assigned at Not on file Legal Sex Female 4:49 AM FILLING HAULER Gender Identity Not on file Sexual Orientation Not on file documented as of this encounter Plan of Treatment Not on file documented as of this encounter Visit Diagnoses Not on filedocumented in this encounter Care Teams Vc++ Developer Relationship Specialty Start Date End Date Carlo Murphy MD [address] [place] [phone] PCP - General 01/05/05 11/03/22 documented as of this encounter
--- OUTSIDE RECORDS SUMMARY | 2025-04-23 09:52 | XMS_ITS | Encounter Summary ---
Author Organization [facility] Address [address] [place] [address] Care Team Providers Care Hydraulic Technician Name Role Phone Carlo Murphy MD Primary Care Provider [phone] Encounter Details Date Type Department Care Team (Late st Contact Info) Description 11/07/2001 Outpatient Historical [facility] Internal Medicine - [facility] [address] [phone] Carlo Murphy MD [address] [place] [phone] Social History Tobacco Use Types Packs/Day Years Used Date Smoking Tobacco: Never Assessed Comments Unknown Sex and Gender Information Value Date Recorded Sex Assigned at Not on file Legal Sex Female 4:49 AM PURIFICATION OPERATOR HELPER Gender Identity Not on file Sexual Orientation Not on file documented as of this encounter Plan of Treatment Not on file documented as of this encounter Visit Diagnoses Not on filedocumented in this encounter Care Teams Hydraulic Technician Relationship Specialty Start Date End Date Carlo Murphy MD [address] [place] [phone] PCP - General 01/05/05 11/03/22 documented as of this encounter
--- OUTSIDE RECORDS SUMMARY | 2025-04-23 09:52 | XMS_ITS | Encounter Summary ---
Author Organization [facility] Address [address] [place] [address] Care Team Providers Care Director International Name Role Phone Carlo Murphy MD Primary Care Provider [phone] Encounter Details Date Type Department Care Team (Late st Contact Info) Description 05/24/2006 Outpatient Historical [facility] Internal Medicine - [facility] [address] [phone] Carlo Murphy MD [address] [place] [phone] Social History Tobacco Use Types Packs/Day Years Used Date Smoking Tobacco: Never Assessed Comments Unknown Sex and Gender Information Value Date Recorded Sex Assigned at Not on file Legal Sex Female 4:49 AM CUSTOMER SUPPORT ASSOCIATE Gender Identity Not on file Sexual Orientation Not on file documented as of this encounter Plan of Treatment Not on file documented as of this encounter Visit Diagnoses Not on filedocumented in this encounter Care Teams Director International Relationship Specialty Start Date End Date Carlo Murphy MD [address] [place] [phone] PCP - General 01/05/05 11/03/22 documented as of this encounter
--- OUTSIDE RECORDS SUMMARY | 2025-04-23 09:52 | XMS_ITS | Encounter Summary ---
Author Organization [facility] Address [address] [place] [address] Care Team Providers Care Lead Business Systems Analyst Name Role Phone Carlo Murphy MD Primary Care Provider [phone] Encounter Details Date Type Department Care Team (Late st Contact Info) Description 11/24/2004 Outpatient Historical [facility] Internal Medicine - [facility] [address] [phone] Carlo Murphy MD [address] [place] [phone] Social History Tobacco Use Types Packs/Day Years Used Date Smoking Tobacco: Never Assessed Comments Unknown Sex and Gender Information Value Date Recorded Sex Assigned at Not on file Legal Sex Female 4:49 AM BEEF CATTLE SPECIALIST Gender Identity Not on file Sexual Orientation Not on file documented as of this encounter Plan of Treatment Not on file documented as of this encounter Visit Diagnoses Not on filedocumented in this encounter Care Teams Lead Business Systems Analyst Relationship Specialty Start Date End Date Carlo Murphy MD [address] [place] [phone] PCP - General 01/05/05 11/03/22 documented as of this encounter
--- OUTSIDE RECORDS SUMMARY | 2025-04-23 09:52 | XMS_ITS | Encounter Summary ---
Author Organization [facility] Address [address] [place] [address] Care Team Providers Care Power Tool Repair Technician Name Role Phone Carlo Murphy MD Primary Care Provider [phone] Encounter Details Date Type Department Care Team (Late st Contact Info) Description 07/19/2006 Outpatient Historical [facility] Internal Medicine - [facility] [address] [phone] Carlo Murphy MD [address] [place] [phone] Social History Tobacco Use Types Packs/Day Years Used Date Smoking Tobacco: Never Assessed Comments Unknown Sex and Gender Information Value Date Recorded Sex Assigned at Not on file Legal Sex Female 4:49 AM PRODUCTION POTTER Gender Identity Not on file Sexual Orientation Not on file documented as of this encounter Plan of Treatment Not on file documented as of this encounter Visit Diagnoses Not on filedocumented in this encounter Care Teams Power Tool Repair Technician Relationship Specialty Start Date End Date Carlo Murphy MD [address] [place] [phone] PCP - General 01/05/05 11/03/22 documented as of this encounter
--- OUTSIDE RECORDS SUMMARY | 2025-04-23 09:52 | XMS_ITS | Encounter Summary ---
Author Organization [facility] Address [address] [place] [address] Care Team Providers Care Hatchery Supervisor Name Role Phone Carlo Murphy MD Primary Care Provider [phone] Encounter Details Date Type Department Care Team (Late st Contact Info) Description 11/24/2004 Outpatient Historical [facility] Internal Medicine - [facility] [address] [phone] Carlo Murphy MD [address] [place] [phone] Social History Tobacco Use Types Packs/Day Years Used Date Smoking Tobacco: Never Assessed Comments Unknown Sex and Gender Information Value Date Recorded Sex Assigned at Not on file Legal Sex Female 4:49 AM PLANS EXAMINER Gender Identity Not on file Sexual Orientation Not on file documented as of this encounter Plan of Treatment Not on file documented as of this encounter Visit Diagnoses Not on filedocumented in this encounter Care Teams Hatchery Supervisor Relationship Specialty Start Date End Date Carlo Murphy MD [address] [place] [phone] PCP - General 01/05/05 11/03/22 documented as of this encounter
--- OUTSIDE RECORDS SUMMARY | 2025-04-23 09:52 | XMS_ITS | Encounter Summary ---
Author Organization [facility] Address [address] [place] [address] Care Team Providers Care Dairy Bacteriologist Name Role Phone Carlo Murphy MD Primary Care Provider [phone] Encounter Details Date Type Department Care Team (Late st Contact Info) Description 02/20/2002 Outpatient Historical [facility] Internal Medicine - [facility] [address] [phone] Carlo Murphy MD [address] [place] [phone] Social History Tobacco Use Types Packs/Day Years Used Date Smoking Tobacco: Never Assessed Comments Unknown Sex and Gender Information Value Date Recorded Sex Assigned at Not on file Legal Sex Female 4:49 AM FOUNTAIN CLERK Gender Identity Not on file Sexual Orientation Not on file documented as of this encounter Plan of Treatment Not on file documented as of this encounter Visit Diagnoses Not on filedocumented in this encounter Care Teams Dairy Bacteriologist Relationship Specialty Start Date End Date Carlo Murphy MD [address] [place] [phone] PCP - General 01/05/05 11/03/22 documented as of this encounter
--- OUTSIDE RECORDS SUMMARY | 2025-04-23 09:52 | XMS_ITS | Encounter Summary ---
Author Organization [facility] Address [address] [place] [address] Care Team Providers Care Membership Correspondent Name Role Phone Carlo Murphy MD Primary Care Provider [phone] Encounter Details Date Type Department Care Team (Latest Contact Info) Description 01/20/2005 Outpatient Historical [facility] Carlo Feliz MD [address] [facility] [address] [place] [phone] CHRONIC CHOLECYSTITIS NEC (Primary Dx) Social History Tobacco Use Types Packs/Day Years Used Date Smoking Tobacco: Never Assessed Comments Unknown Sex and Gender Information Value Date Recorded Sex Assigned at Not on file Legal Sex Female 4:49 AM BAND INSTRUMENT MAKER Gender Identity Not on file Sexual [...] ORDERABLES Final Re sult Performing Organization Address [facility] Phone Number INTERFACE SYSTEM Refer to clinic/hospital [...] ORDERABLES Final Re sult Performing Organization Address [facility] Phone Number INTERFACE SYSTEM Refer to clinic/hospital department documented in this encounter Visit Diagnoses Diagnosis Chronic cholecystitis- Primary documented in this encounter Care Teams Membership Correspondent Relationship Specialty Start Date End Date Carlo Murphy MD [address] [place] [address] [place] [phone] PCP - General 01/05/05 11/03/22 documented as of this encounter
--- OUTSIDE RECORDS SUMMARY | 2025-04-23 09:52 | XMS_ITS | Encounter Summary ---
Author Organization [facility] Address [address] [place] [address] Care Team Providers Care Boring Machine Operator Production Name Role Phone Carlo Murphy MD Primary Care Provider [phone] Encounter Details Date Type Department Care Team (Late st Contact Info) Description 01/26/2006 Outpatient Historical [facility] Internal Medicine - [facility] [address] [phone] Carlo Murphy MD [address] [place] [phone] Social History Tobacco Use Types Packs/Day Years Used Date Smoking Tobacco: Never Assessed Comments Unknown Sex and Gender Information Value Date Recorded Sex Assigned at Not on file Legal Sex Female 4:49 AM ASSEMBLER CORNCOB PIPES Gender Identity Not on file Sexual Orientation Not on file documented as of this encounter Plan of Treatment Not on file documented as of this encounter Visit Diagnoses Not on filedocumented in this encounter Care Teams Boring Machine Operator Production Relationship Specialty Start Date End Date Carlo Murphy MD [address] [place] [phone] PCP - General 01/05/05 11/03/22 documented as of this encounter
--- OUTSIDE RECORDS SUMMARY | 2025-04-23 09:52 | XMS_ITS | Encounter Summary ---
Author Organization [facility] Address [address] [place] [address] Care Team Providers Care Slate Roofer Helper Name Role Phone Carlo Murphy MD Primary Care Provider [phone] Encounter Details Date Type Department Care Team (Late st Contact Info) Description 04/25/2002 Outpatient Historical [facility] Internal Medicine - [facility] [address] [phone] Carlo Murphy MD [address] [place] [phone] Social History Tobacco Use Types Packs/Day Years Used Date Smoking Tobacco: Never Assessed Comments Unknown Sex and Gender Information Value Date Recorded Sex Assigned at Not on file 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
--- OUTSIDE RECORDS SUMMARY | 2025-04-23 09:52 | XMS_ITS | Encounter Summary ---
Author Organization [facility] Address [address] [place] [address] Care Team Providers Care Manager Maritime Name Role Phone Carlo Murphy MD Primary Care Provider [phone] Encounter Details Date Type Department Care Team (Late st Contact Info) Description 03/31/2004 Outpatient Historical [facility] Internal Medicine - [facility] [address] [phone] Carlo Murphy MD [address] [place] [phone] Social History Tobacco Use Types Packs/Day Years Used Date Smoking Tobacco: Never Assessed Comments Unknown Sex and Gender Information Value Date Recorded Sex Assigned at Not on file 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
--- OUTSIDE RECORDS SUMMARY | 2025-04-23 09:52 | XMS_ITS | Encounter Summary ---
Author Organization [facility] Address [address] [place] [address] Care Team Providers Care Information Systems Security Manager Name Role Phone Carlo Murphy MD Primary Care Provider [phone] Encounter Details Date Type Department Care Team (Late st Contact Info) Description 08/13/2004 Outpatient Historical [facility] Internal Medicine - [facility] [address] [phone] Nacho Kate Jr., MD NO ADDRESS ON FILE Social History Tobacco Use Types Packs/Day Years Used Date Smoking Tobacco: Never Assessed Comments Unknown Sex and Gender Information Value Date Recorded Sex Assigned at Not on file Legal Sex Female 4:49 AM CLIENT CARE CONSULTANT Gender Identity Not on file Sexual Orientation Not on file documented as of this encounter Plan of Treatment Not on file documented as of this encounter Visit Diagnoses Not on filedocumented in this encounter Care Teams Information Systems Security Manager Relationship Specialty Start Date End Date Carlo Murphy MD [address] [place] [phone] PCP - General 01/05/05 11/03/22 documented as of this encounter
--- OUTSIDE RECORDS SUMMARY | 2025-04-23 09:52 | XMS_ITS | Encounter Summary ---
Author Organization [facility] Address [address] [place] [address] Care Team Providers Care Field Service Tech Name Role Phone Carlo Murphy MD Primary Care Provider [phone] Encounter Details Date Type Department Care Team (Late st Contact Info) Description 09/07/2005 Outpatient Historical [facility] 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
--- OUTSIDE RECORDS SUMMARY | 2025-04-23 09:52 | XMS_ITS | Encounter Summary ---
Author Organization [facility] Address [address] [place] [address] Care Team Providers Care Welder Setter Resistance Machine Name Role Phone Carlo Murphy MD Primary Care Provider [phone] Encounter Details Date Type Department Care Team (Late st Contact Info) Description 08/24/2006 Outpatient Historical [facility] Eligio Goodwin MD [address] [place] [address] [place] [phone] Reflux Esophagitis (Primary Dx) Social History Tobacco Use Types Packs/Day Years Used Date Smoking Tobacco: Never Assessed Comments Unknown Sex and Gender Information Value Date Recorded Sex Assigned at Not on file 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
--- OUTSIDE RECORDS SUMMARY | 2025-04-23 09:52 | XMS_ITS | Encounter Summary ---
Author Organization [facility] Address [address] [place] [address] Care Team Providers Care Seal Delivery Vehicle Officer Name Role Phone Carlo Murphy MD Primary Care Provider [phone] Encounter Details Date Type Department Care Team (Late st Contact Info) Description 03/22/2006 Outpatient Historical [facility] Internal Medicine - [facility] [address] [phone] Carlo Murphy MD [address] [place] [phone] Social History Tobacco Use Types Packs/Day Years Used Date Smoking Tobacco: Never Assessed Comments Unknown Sex and Gender Information Value Date Recorded Sex Assigned at Not on file 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
--- OUTSIDE RECORDS SUMMARY | 2025-04-23 09:52 | XMS_ITS | Encounter Summary ---
Author Organization [facility] Address [address] [place] [address] Care Team Providers Care Warranty Coordinator Name Role Phone Carlo Murphy MD Primary Care Provider [phone] Encounter Details Date Type Department Care Team (Late st Contact Info) Description 09/03/2005 Outpatient Historical [facility] Internal Medicine - [facility] [address] [phone] Carlo Murphy MD [address] [place] [phone] Social History Tobacco Use Types Packs/Day Years Used Date Smoking Tobacco: Never Assessed Comments Unknown Sex and Gender Information Value Date Recorded Sex Assigned at Not on file 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
--- OUTSIDE RECORDS SUMMARY | 2025-04-23 09:52 | XMS_ITS | Encounter Summary ---
Author Organization [facility] Address [address] [place] [address] Care Team Providers Care Mattress Filling Machine Tender Name Role Phone Carlo Murphy MD Primary Care Provider [phone] Encounter Details Date Type Department Care Team (Late st Contact Info) Description 11/23/2005 Outpatient Historical [facility] Internal Medicine - [facility] [address] [phone] Carlo Murphy MD [address] [place] [phone] Social History Tobacco Use Types Packs/Day Years Used Date Smoking Tobacco: Never Assessed Comments Unknown Sex and Gender Information Value Date Recorded Sex Assigned at Not on file 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
--- OUTSIDE RECORDS SUMMARY | 2025-04-23 09:52 | XMS_ITS | Encounter Summary ---
Author Organization [facility] Address [address] [place] [address] Care Team Providers Care Global Program Director Name Role Phone Carlo Murphy MD Primary Care Provider [phone] Encounter Details Date Type Department Care Team (Late st Contact Info) Description 08/26/2004 Outpatient Historical [facility] Internal Medicine - [facility] [address] [phone] Nacho Kate Jr., MD NO ADDRESS ON FILE Social History Tobacco Use Types Packs/Day Years Used Date Smoking Tobacco: Never Assessed Comments Unknown Sex and Gender Information Value Date Recorded Sex Assigned at Not on file 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
--- OUTSIDE RECORDS SUMMARY | 2025-04-23 09:52 | XMS_ITS | Encounter Summary ---
Author Organization [facility] Address [address] [place] [address] Care Team Providers Care Lump Roller Name Role Phone Carlo Murphy MD Primary Care Provider [phone] Encounter Details Date Type Department Care Team (Late st Contact Info) Description 11/21/2001 Outpatient Historical [facility] Internal Medicine - [facility] [address] [phone] Carlo Murphy MD [address] [place] [phone] Social History Tobacco Use Types Packs/Day Years Used Date Smoking Tobacco: Never Assessed Comments Unknown Sex and Gender Information Value Date Recorded Sex Assigned at Not on file Legal Sex Female 4:49 AM COMMISSIONING AGENT Gender Identity Not on file Sexual Orientation Not on file documented as of this encounter Plan of Treatment Not on file documented as of this encounter Visit Diagnoses Not on filedocumented in this encounter Care Teams Lump Roller Relationship Specialty Start Date End Date Carlo Murphy MD [address] [place] [phone] PCP - General 01/05/05 11/03/22 documented as of this encounter
--- OUTSIDE RECORDS SUMMARY | 2025-04-23 09:52 | XMS_ITS | Encounter Summary ---
Author Organization [facility] Address [address] [place] [address] Care Team Providers Care Pigment Pumper Name Role Phone Carlo Murphy MD Primary Care Provider [phone] Encounter Details Date Type Department Care Team (Late st Contact Info) Description 12/19/2001 Outpatient Historical [facility] Internal Medicine - [facility] [address] [phone] Carlo Murphy MD [address] [place] [phone] Social History Tobacco Use Types Packs/Day Years Used Date Smoking Tobacco: Never Assessed Comments Unknown Sex and Gender Information Value Date Recorded Sex Assigned at Not on file 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
--- OUTSIDE RECORDS SUMMARY | 2025-04-23 09:52 | XMS_ITS | Encounter Summary ---
Author Organization [facility] Address [address] [place] [address] Care Team Providers Care Correctional Officer Name Role Phone Carlo Murphy MD Primary Care Provider [phone] Encounter Details Date Type Department Care Team (Late st Contact Info) Description 10/01/2005 Outpatient Historical [facility] Internal Medicine - [facility] [address] [phone] Carlo Murphy MD [address] [place] [phone] Social History Tobacco Use Types Packs/Day Years Used Date Smoking Tobacco: Never Assessed Comments Unknown Sex and Gender Information Value Date Recorded Sex Assigned at Not on file Legal Sex Female 4:49 AM PUBLICITY CONSULTANT Gender Identity Not on file Sexual Orientation Not on file documented as of this encounter Plan of Treatment Not on file documented as of this encounter Visit Diagnoses Not on filedocumented in this encounter Care Teams Correctional Officer Relationship Specialty Start Date End Date Carlo Murphy MD [address] [place] [phone] PCP - General 01/05/05 11/03/22 documented as of this encounter
[2025-04-23 10:13] LABS: Alanine Aminotransferase 39 U/L (6-35); Albumin Level 3.9 g/dL (3.5-5.1); Alkaline Phosphatase 51 U/L (38-126); Anion Gap 8 mmol/L (4-12); Aspartate Amino Transferase 64 U/L (14-36); Bilirubin,Total 0.9 mg/dL (0.2-1.3); Blood Urea Nitrogen 22 mg/dL (7-17); Calcium 9.1 mg/dL (8.4-10.2); Carbon Dioxide 24 mmol/L (22-30); Chloride 106 mmol/L (98-107); Estimated Glomerular Filt Rate 53; Glucose 102 mg/dL (65-110); Potassium 4.3 mmol/L (3.4-5.0); Sodium 138 mmol/L (137-145); Total Protein 8.4 g/dL (6.3-8.2)
[2025-04-23 10:59] LABS: Hepatitis B Surface Antigen Negative (Negative)
[2025-04-23 11:04] LABS: HAV RESULT Negative (Negative); Hepatitis B Core IgM Result Negative (Negative)
[2025-04-24 07:09] LABS: GGT 64 IU/L (0-60)
== END 2025-04-23 09:05 | disposition home or self-care (01) ==
PROVIDERS: PCP Family Medicine; Visit Provider Nurse Practitioner Family
DX: R74.8 Abnormal levels of other serum enzymes (principal); I10 Essential (primary) hypertension; D64.9 Anemia, unspecified; R53.83 Other fatigue; E55.9 Vitamin D deficiency, unspecified
CPT/HCPCS: 36415; 80053; 80074; 82306; 82977